=== PATIENT | female | born 1930 | race Caucasian/White ===

== ENCOUNTER → 2017-01-27 | Outpatient (CLI) | payer MEDICARE ==
[~2017-01-27] MED LIST: ANTIVERT25 MG PO; ASPIR 8181 MG PO; ASPIRIN325 M2 PO; ASPIRIN81 M1 PO; CARDIZEM CD180 MG PO; CATAPRES0.1 MG PO; CATAPRES0.2 MG PO; CIPRO250 MG PO; CIPRO500 MG; CIPRO500 MG PO; CIPROFLOXACIN500 MG PO; COMPLETE1 TA1 PO; COZAAR25 MG PO; DAYPRO600 M1 PO; DULCOLAX5 MG PO; FLAGYL 500 MG500 MG PO; FLAGYL500 MG PO; HYDRALAZINE HCL25 MG; K-DUR 20MEQ20 MEQ PO; KLOR-CON M2020 ME1 PO; LASIX20 MG PO; LASIX40 MG PO; LIDEX0.05% T; LIDODERM 5% PATC1 EA TD; LIPITOR40 MG PO; MACROBID100 M1 PO; MAXZIDE 25 MG-31 TAB PO; METOPROLOL25 MG PO; MILK OF MAGNESI1 TAB; MIRALAX17 GM/PACK PO; MOM30 M1 PO; NEURONTIN100 MG PO; NEURONTIN300 MG PO; OXYCODONE5 M1 PO; OXYCONTIN10 MG PO; PERCOCET 325 MG1 TA6 PO; PERCOCET 325 MG1 TA7 PO; POTASSIUM20 MEQ PO; PROTONIX40 MG PO; PYRIDIUM200 MG PO; REGLAN10 MG PO; ROBAXIN750 MG PO; TESSALON PERLE100 M1 PO; TORADOL10 MG PO; TYLENOL WITH CO1 TAB PO; VIBRAMYCIN100 MG PO; VICODIN 5/500 505 MG PO; XANAX0.25 MG PO; ZETIA10 MG PO; ZOFRAN ODT4 MG SL; ZYVOX600 MG PO; Zofran4 MG PO
[2017-01-27 08:46] LABS: ALBUMIN 3.9 gm/dl (3.1-4.5); BILIRUBIN, DIRECT 0.1 mg/dL (0.0-0.2); BILIRUBIN, TOTAL 0.4 mg/dl (0.2-1.0); TOTAL PROTEIN 7.8 gm/dL (6.4-8.2)
== END | disposition home or self-care (01) ==
LOC: LAB 07:53
PROVIDERS: Internal Medicine
DX: E78.5 Hyperlipidemia, unspecified (principal); E11.9 Type 2 diabetes mellitus without complications

== ENCOUNTER 2017-04-19 06:27 | Inpatient (IN) | payer MEDICARE ==
[2017-04-19] VITALS (7 sets, daily range): BP systolic 132–176; BP diastolic 64–92
[~2017-04-19] VITALS: Ht 147.3 cm; Wt 57.3 kg
[2017-04-19 07:06] LABS: BASO # 0.1 10*3/uL (0.0-0.1); BASO % 0.7 % (0.0-1.0); EOS # 0.3 10*3/uL (0.0-0.4); EOS % 3.7 % (1.0-4.0); HEMATOCRIT 36.5 % (37.0-47.0); HEMOGLOBIN 11.4 g/dl (12.0-16.0); LYMPH # 2.9 10*3/uL (1.3-4.4); LYMPH % 41.1 % (27.0-41.0); MEAN CELL VOLUME 88.6 fl (81.0-99.0); MEAN CORPUSCULAR HGB 27.7 pg (27.0-31.0); MEAN CORPUSCULAR HGB CONC 31.2 g/dl (33.0-37.0); MEAN PLATELET VOLUME 9.6 fl (9.6-12.3); MONO # 0.6 10*3/uL (0.1-1.0); MONO % 8.6 % (3.0-9.0); NEUT # 3.2 10*3/uL (2.3-7.9); NEUT % 45.8 % (47.0-73.0); PLATELET COUNT AUTOMATED 242 10*3/uL (130-400); RED BLOOD COUNT 4.12 10*6/uL (4.10-5.10); RED CELL DISTRI WIDTH 16.7 % (0-14.5); WHITE BLOOD COUNT 6.9 10*3/uL (4.8-10.8)
[2017-04-19 07:14] LABS: PROTHROMBIN TIME 10.6 SECONDS (9.0-12.4)
[2017-04-19 07:26] LABS: BILIRUBIN NEGATIVE (NEGATIVE); BLOOD NEGATIVE (NEGATIVE); CLARITY SL CLOUDY (CLEAR); COLOR STRAW (YELLOW); GLUCOSE NEGATIVE (NEGATIVE); KETONE NEGATIVE (NEGATIVE); LEUKO ESTERASE NEGATIVE (NEGATIVE); NITRITE NEGATIVE (NEGATIVE); PROTEIN NEGATIVE (NEGATIVE); SPECIFIC GRAVITY <= 1.005 (1.005-1.030); UROBILINOGEN 0.2 E.U./dl (0.2-1.0)
[2017-04-19 07:28] LABS: ALBUMIN 3.5 gm/dl (3.1-4.5); BUN 16 mg/dl (7-24); CARBON DIOXIDE 30 mmol/L (21-32); CHLORIDE 104 mmol/L (98-107); EST GLOM FILT AFRICAN AMERICAN > 60 ml/min; GLUCOSE 110 mg/dL (65-99); POTASSIUM 3.4 mmol/L (3.5-5.1); SGOT/AST 19 IU/L (3-35); SGPT/ALT 22 U/L (12-78); SODIUM 139 mmol/L (136-145)
[2017-04-19 07:33] LABS: ALKALINE PHOSPHATASE 103 U/L (45-117); BILIRUBIN, TOTAL 0.4 mg/dl (0.2-1.0); TOTAL PROTEIN 7.2 gm/dL (6.4-8.2)
[2017-04-19 07:35] LABS: TROPONIN I < 0.015 ng/ml (<0.045)
[2017-04-19 07:37] LABS: EPITHELIAL CELLS 0-2; URINE REFLEX COMMENT NO (NO); WBC 0-2 wbc/hpf (0-5)
[2017-04-19] MEDS ORDERED: TRAMADOL HCL50 MG PO (10:58)
[2017-04-20] VITALS: BP 152/80
[2017-04-20 06:47] LABS: BASO # 0.1 10*3/uL (0.0-0.1); EOS # 0.3 10*3/uL (0.0-0.4); EOS % 4.3 % (1.0-4.0); HEMATOCRIT 38.4 % (37.0-47.0); HEMOGLOBIN 11.8 g/dl (12.0-16.0); LYMPH # 3.3 10*3/uL (1.3-4.4); LYMPH % 47.1 % (27.0-41.0); MEAN CELL VOLUME 91.2 fl (81.0-99.0); MEAN CORPUSCULAR HGB CONC 30.7 g/dl (33.0-37.0); MONO # 0.6 10*3/uL (0.1-1.0); MONO % 7.9 % (3.0-9.0); NEUT # 2.8 10*3/uL (2.3-7.9); NEUT % 39.6 % (47.0-73.0); PLATELET COUNT AUTOMATED 245 10*3/uL (130-400); RED BLOOD COUNT 4.21 10*6/uL (4.10-5.10); RED CELL DISTRI WIDTH 16.8 % (0-14.5)
[2017-04-20 06:58] LABS: ALBUMIN 3.5 gm/dl (3.1-4.5); ALKALINE PHOSPHATASE 107 U/L (45-117); BILIRUBIN, TOTAL 0.4 mg/dl (0.2-1.0); BUN 15 mg/dl (7-24); CARBON DIOXIDE 32 mmol/L (21-32); CHLORIDE 102 mmol/L (98-107); EST GLOM FILT AFRICAN AMERICAN > 60 ml/min; FREE T4 0.97 ng/dl (0.76-1.46); GLUCOSE 98 mg/dL (65-99); MAGNESIUM 2.4 mg/dL (1.5-2.1); PHOSPHOROUS 3.8 mg/dL (2.5-4.9); POTASSIUM 4.1 mmol/L (3.5-5.1); SGOT/AST 22 IU/L (3-35); SGPT/ALT 22 U/L (12-78); SODIUM 140 mmol/L (136-145)
[2017-04-20 07:04] LABS: HEMOGLOBIN A1c 6.5 % (4.8-5.6)
[2017-04-20 07:22] LABS: PROTHROMBIN TIME 10.2 SECONDS (8.9-12.2)
[2017-04-20 07:38] LABS: VITAMIN D, 25-HYDROXY 16.7 ng/mL (30-100)
[2017-04-20 07:43] LABS: FOLIC ACID > 24.00 ng/mL (>5.38)
[2017-04-20 08:00] VITALS: BP 122/94
[2017-04-20] MEDS ORDERED: TRAMADOL HYDRO100 MG PO (10:57)
[2017-04-20] MEDS ORDERED: TRAMADOL HCL50 MG PO (10:57)
[2017-04-20 12:00] VITALS: BP 128/86
== END 2017-04-20 12:00 | disposition home or self-care (01) | DRG 552 ==
LOC: ED 06:27 → EDHOLD 09:11 → 4E 09:11
PROVIDERS: Emergency Medicine Emergency Medical Services; Internal Medicine
DX: M54.9 Dorsalgia, unspecified (principal); E11.65 Type 2 diabetes mellitus with hyperglycemia; I48.2 Chronic atrial fibrillation; E86.0 Dehydration; J98.11 Atelectasis; E78.5 Hyperlipidemia, unspecified; K27.9 Peptic ulcer, site unspecified, unspecified as acute or chronic, without hemorrhage or perforation; I10 Essential (primary) hypertension; G89.4 Chronic pain syndrome; M19.90 Unspecified osteoarthritis, unspecified site; D64.9 Anemia, unspecified; E87.6 Hypokalemia; K44.9 Diaphragmatic hernia without obstruction or gangrene; K57.90 Diverticulosis of intestine, part unspecified, without perforation or abscess without bleeding; Z96.643 Presence of artificial hip joint, bilateral; I25.10 Atherosclerotic heart disease of native coronary artery without angina pectoris; Z88.1 Allergy status to other antibiotic agents; Z88.8 Allergy status to other drugs, medicaments and biological substances; Z91.041 Radiographic dye allergy status; Z88.2 Allergy status to sulfonamides; Z88.7 Allergy status to serum and vaccine; Z79.82 Long term (current) use of aspirin; Z79.899 Other long term (current) drug therapy; Z88.0 Allergy status to penicillin; Z87.442 Personal history of urinary calculi; Z90.710 Acquired absence of both cervix and uterus; Z90.49 Acquired absence of other specified parts of digestive tract; Z95.1 Presence of aortocoronary bypass graft; Z83.3 Family history of diabetes mellitus; Z83.79 Family history of other diseases of the digestive system; Z83.6 Family history of other diseases of the respiratory system; Z87.440 Personal history of urinary (tract) infections; Z98.1 Arthrodesis status; Z81.1 Family history of alcohol abuse and dependence

== ENCOUNTER 2017-07-04 06:23 | Inpatient (IN) | payer MEDICARE ==
[~2017-07-04] VITALS: Ht 147.3 cm; Wt 57.4 kg
[2017-07-04 06:23] VITALS: BP 170/71
[~2017-07-04 06:23] MED LIST changes: +TRAMADOL HCL50 MG PO; +TRAMADOL HYDRO100 MG PO
[2017-07-04 07:15] LABS: BASO % 0.5 % (0.0-1.0); EOS # 0.2 10*3/uL (0.0-0.4); HEMATOCRIT 35.8 % (37.0-47.0); HEMOGLOBIN 11.2 g/dl (12.0-16.0); LYMPH # 1.4 10*3/uL (1.3-4.4); MEAN CELL VOLUME 89.5 fl (81.0-99.0); MEAN CORPUSCULAR HGB CONC 31.3 g/dl (33.0-37.0); MONO # 0.6 10*3/uL (0.1-1.0); MONO % 7.5 % (3.0-9.0); NEUT # 5.4 10*3/uL (2.3-7.9); NEUT % 71.6 % (47.0-73.0); PLATELET COUNT AUTOMATED 301 10*3/uL (130-400); RED CELL DISTRI WIDTH 15.8 % (0-14.5); WHITE BLOOD COUNT 7.5 10*3/uL (4.8-10.8)
[2017-07-04 07:36] LABS: ALBUMIN 3.4 gm/dl (3.1-4.5); ALKALINE PHOSPHATASE 101 U/L (45-117); BUN 19 mg/dl (7-24); CHLORIDE 104 mmol/L (98-107); CREATININE 0.66 mg/dL (0.55-1.02); LIPASE 65 U/L (73-393); SGOT/AST 26 IU/L (3-35); SGPT/ALT 20 U/L (12-78); SODIUM 140 mmol/L (136-145); TOTAL PROTEIN 7.4 gm/dL (6.4-8.2)
[2017-07-04 07:40] VITALS: BP 171/76
[2017-07-04 07:52] LABS: BILIRUBIN NEGATIVE (NEGATIVE); BLOOD NEGATIVE (NEGATIVE); CLARITY SL CLOUDY (CLEAR); COLOR YELLOW (YELLOW); GLUCOSE NEGATIVE (NEGATIVE); KETONE NEGATIVE (NEGATIVE); LEUKO ESTERASE TRACE (NEGATIVE); NITRITE NEGATIVE (NEGATIVE); PH 6.5 (5.0-9.0); SPECIFIC GRAVITY <= 1.005 (1.005-1.030); UROBILINOGEN 0.2 E.U./dl (0.2-1.0)
[2017-07-04 08:14] LABS: BACTERIA 1+
--- NOTE | 2017-07-04 08:17 | NUR ---
0789 PT STATES SHE IS FEELING BETER, UNTIL SHE STOOD TO USE THE BSC. AT THAT TIME THE PATIENT STATES THE NAUSEA IS BACK. UA OBTAINED AND SENT. CALL LIGHT IN REACH REORIENTED ON USE. CART IN LOW POSTION SIDE RAILS UP. MELE WHITE.
[2017-07-04 09:45] VITALS: BP 184/80
--- NOTE | 2017-07-04 09:45 | NUR ---
Time: 944 A 87 year old FEMALE admitted to 5E under services of FAY BYRD DO. Pt. arrived via bed from ER. Chief complaint: NAUSEA VOMITING UTI. LISA MCCARTHY
[2017-07-04 11:08] LABS: ACT PARTIAL THROMBO TIME 28.7 SECONDS (20.8-31.5)
[2017-07-04 12:00] VITALS: BP 178/81
--- NOTE | 2017-07-04 13:00 | NUR ---
MEDICATED WITH ULTRAM FOR BACK PAIN SHE RATES AN 8 ON THE PAIN SCALE.
--- NOTE | 2017-07-04 14:04 | NUR ---
NO FURTHER COMPLAINTS.
[2017-07-04 16:00] VITALS: BP 166/81
[2017-07-04 20:00] VITALS: BP 158/73
--- NOTE | 2017-07-04 21:00 | NUR ---
PO ULTRAM ADMINISTERED PER PRN ORDER FOR C/O ABD PAIN 02/25. PATIENT STATES EARLIER IV ZOFRAN HELPED WITH HER NAUSEA. WILL CONTINUE TO MONITOR. CALL LIGHT LEFT IN REACH.
--- NOTE | 2017-07-04 21:47 | NUR ---
PATIENT STATES EARLIER ULTRAM WAS EFFECTIVE. WILL MONITOR.
[2017-07-05] VITALS: BP 133/58
--- NOTE | 2017-07-05 02:08 | NUR ---
PATIENT ASLEEP IN BED AT THIS TIME. RESPIRATIONS EASY. NO S/S OF DISTRESS NOTED. ON 2L NC. WILL MONITOR. CALL LIGHT WITHIN REACH.
[2017-07-05 06:22] LABS: BASO % 0.6 % (0.0-1.0); EOS # 0.4 10*3/uL (0.0-0.4); EOS % 5.7 % (1.0-4.0); HEMATOCRIT 36.8 % (37.0-47.0); HEMOGLOBIN 11.4 g/dl (12.0-16.0); LYMPH # 2.9 10*3/uL (1.3-4.4); LYMPH % 44.4 % (27.0-41.0); MEAN CORPUSCULAR HGB 28.5 pg (27.0-31.0); MEAN PLATELET VOLUME 9.8 fl (9.6-12.3); MONO # 0.6 10*3/uL (0.1-1.0); MONO % 9.1 % (3.0-9.0); NEUT # 2.6 10*3/uL (2.3-7.9); NEUT % 39.9 % (47.0-73.0); PLATELET COUNT AUTOMATED 287 10*3/uL (130-400); RED CELL DISTRI WIDTH 15.9 % (0-14.5); WHITE BLOOD COUNT 6.5 10*3/uL (4.8-10.8)
[2017-07-05 06:52] LABS: ACT PARTIAL THROMBO TIME 28.8 SECONDS (20.8-31.5)
[2017-07-05 06:54] LABS: ALBUMIN 3.2 gm/dl (3.1-4.5); BUN 11 mg/dl (7-24); CHLORIDE 104 mmol/L (98-107); MAGNESIUM 2.2 mg/dL (1.5-2.1); POTASSIUM 3.4 mmol/L (3.5-5.1); SGOT/AST 13 IU/L (3-35); SGPT/ALT 19 U/L (12-78); SODIUM 141 mmol/L (136-145)
[2017-07-05 06:57] LABS: ALKALINE PHOSPHATASE 94 U/L (45-117)
[2017-07-05 07:34] LABS: VITAMIN D, 25-HYDROXY 26.1 ng/mL (30-100)
[2017-07-05 08:00] VITALS: BP 132/98
--- NOTE | 2017-07-05 08:00 | NUR ---
PATIENT RESTING WITH NO DISTRESS.
--- NOTE | 2017-07-05 09:00 | NUR ---
Civil Process Server in to talk to patient. Patient states lives at home with alone. There are no steps in the home. Physician: nicolás [facility]: [facility] Home health services: none Patient's level of ADLs: MINIMAL ASSIST Patient has working utilities: all working DME: walker, cane, home oxygen and portable tanks from [facility] Follow-up physician's appointment after d/c: will be made by hospitalist nurse director upon discharge Does patient want to access PORTAL?: no Discharge plan discussed with patient, patient lives at home alone, she has a daughter that helps her whenever she needs anything, patient states she will be going back home and denies any home needs at this time. ROSI BAILEY
--- NOTE | 2017-07-05 10:00 | NUR ---
AM MEDS TAKEN.
[2017-07-05 12:00] VITALS: BP 121/47
[2017-07-05] MEDS ORDERED: VITAMIN D31000 UNI1 PO (14:18)
--- NOTE | 2017-07-05 14:45 | NUR ---
HEP LOCK REMOVED FOR DISCHARGE. Discharge instructions reviewed with patient/family. Patient receptive and verbalizes understanding. Follow-up care arranged. Written instructions given to patient/family. BETITO EVANS
== END 2017-07-05 14:45 | disposition home or self-care (01) | DRG 384 ==
LOC: ED 06:23 → 5E 09:26 → EDHOLD 09:26 → 5E 09:29
PROVIDERS: Emergency Medicine; Internal Medicine; ADMIT Internal Medicine
DX: K27.9 Peptic ulcer, site unspecified, unspecified as acute or chronic, without hemorrhage or perforation (principal); E11.65 Type 2 diabetes mellitus with hyperglycemia; N39.0 Urinary tract infection, site not specified; R11.2 Nausea with vomiting, unspecified; D64.9 Anemia, unspecified; K44.9 Diaphragmatic hernia without obstruction or gangrene; I48.0 Paroxysmal atrial fibrillation; K57.30 Diverticulosis of large intestine without perforation or abscess without bleeding; M54.9 Dorsalgia, unspecified; G89.4 Chronic pain syndrome; I25.10 Atherosclerotic heart disease of native coronary artery without angina pectoris; I10 Essential (primary) hypertension; E78.5 Hyperlipidemia, unspecified; M19.90 Unspecified osteoarthritis, unspecified site; Z96.643 Presence of artificial hip joint, bilateral; Z87.440 Personal history of urinary (tract) infections; Z87.442 Personal history of urinary calculi; Z88.0 Allergy status to penicillin; Z88.2 Allergy status to sulfonamides; Z88.1 Allergy status to other antibiotic agents; Z88.8 Allergy status to other drugs, medicaments and biological substances; Z88.7 Allergy status to serum and vaccine; Z91.041 Radiographic dye allergy status; Z90.710 Acquired absence of both cervix and uterus; Z90.79 Acquired absence of other genital organ(s); Z90.722 Acquired absence of ovaries, bilateral; Z95.1 Presence of aortocoronary bypass graft; Z83.3 Family history of diabetes mellitus; Z81.1 Family history of alcohol abuse and dependence; Z88.6 Allergy status to analgesic agent; Z79.82 Long term (current) use of aspirin; Z79.899 Other long term (current) drug therapy

== ENCOUNTER 2017-08-07 16:55 | Inpatient (IN) | payer MEDICARE ==
[~2017-08-07] VITALS: Ht 147.3 cm; Wt 57.2 kg
[~2017-08-07 16:55] MED LIST changes: +VITAMIN D31000 UNI1 PO
[2017-08-07 17:03] VITALS: BP 173/76
[2017-08-07 17:57] LABS: BASO % 0.5 % (0.0-1.0); EOS # 0.2 10*3/uL (0.0-0.4); EOS % 2.3 % (1.0-4.0); HEMATOCRIT 37.8 % (37.0-47.0); HEMOGLOBIN 11.9 g/dl (12.0-16.0); LYMPH # 2.1 10*3/uL (1.3-4.4); LYMPH % 24.8 % (27.0-41.0); MEAN CELL VOLUME 89.6 fl (81.0-99.0); MEAN CORPUSCULAR HGB 28.2 pg (27.0-31.0); MEAN CORPUSCULAR HGB CONC 31.5 g/dl (33.0-37.0); MEAN PLATELET VOLUME 10.1 fl (9.6-12.3); MONO # 0.7 10*3/uL (0.1-1.0); MONO % 8.3 % (3.0-9.0); NEUT # 5.4 10*3/uL (2.3-7.9); NEUT % 63.7 % (47.0-73.0); PLATELET COUNT AUTOMATED 261 10*3/uL (130-400); RED BLOOD COUNT 4.22 10*6/uL (4.10-5.10); RED CELL DISTRI WIDTH 16.1 % (0-14.5); WHITE BLOOD COUNT 8.5 10*3/uL (4.8-10.8)
[2017-08-07 18:06] LABS: ACT PARTIAL THROMBO TIME 28.3 SECONDS (20.8-31.5)
[2017-08-07 18:12] LABS: ALBUMIN 3.9 gm/dl (3.1-4.5); ALKALINE PHOSPHATASE 101 U/L (45-117); BUN 20 mg/dl (7-24); CHLORIDE 100 mmol/L (98-107); LIPASE 61 U/L (73-393); POTASSIUM 3.6 mmol/L (3.5-5.1); SGOT/AST 13 IU/L (3-35); SGPT/ALT 21 U/L (12-78); SODIUM 139 mmol/L (136-145); TOTAL PROTEIN 7.8 gm/dL (6.4-8.2)
[2017-08-07 18:16] LABS: TROPONIN I < 0.015 ng/ml (<0.045)
[2017-08-07 19:06] LABS: BILIRUBIN NEGATIVE (NEGATIVE); BLOOD TRACE-INTACT (NEGATIVE); CLARITY CLEAR (CLEAR); COLOR YELLOW (YELLOW); GLUCOSE NEGATIVE (NEGATIVE); KETONE NEGATIVE (NEGATIVE); LEUKO ESTERASE TRACE (NEGATIVE); NITRITE NEGATIVE (NEGATIVE); PH 7.5 (5.0-9.0); UROBILINOGEN 0.2 E.U./dl (0.2-1.0)
[2017-08-07 19:14] LABS: BACTERIA 1+; EPITHELIAL CELLS 0-2; RBC 0-2 rbc/hpf (0-2)
[2017-08-07 20:00] VITALS: BP 158/86
--- NOTE | 2017-08-07 20:37 | NUR ---
ATTEMPTED TO GIVE RN TO RN REPORT TO [facility].
[2017-08-07 21:45] VITALS: BP 110/68
--- NOTE | 2017-08-07 21:45 | NUR ---
A 87, admitted to 5E, under the services of FAY Byrd DO with a diagnosis of UTI, DIZZINESS OF UNKNOWN CAUSE. Chief complaint is DIZZINESS. Patient arrived via stretcher from ER. Monitor applied. Initial assessment completed. Vital signs taken and recorded. FAY BYRD DO notified of admission to the unit. Orders received. See assessment for past medical history, medications and allergies. Patient and/or family oriented to unit. [facility] visitation policy reviewed. Clothing/patient valuable form completed. TRE HERNANDEZ
--- NOTE | 2017-08-07 22:03 | NUR ---
SPOKE TO REGARDING PATIENT'S ALLERGIES. DISCUSSED REACTIONS TO EACH OF PATIENT'S LISTED ALLERGIES PER 'S REQUEST. FOR EVERY ALLERGY REVIEWED, PATIENT RESPONDED "I ALMOST ." WHEN RN ASKED PATIENT TO EXPLAIN FURTHER, PATIENT SAID "COULDN'T BREATH, ALMOST ." UPDATED ON RESPONSES.
[2017-08-07] MEDS ORDERED: LIPITOR20 MG PO (23:54)
[2017-08-07] MEDS ORDERED: ONCE DAILY1 EACH PO (23:55)
[2017-08-08] VITALS: BP 105/79; BP 175/79
[2017-08-08] MEDS ORDERED: LASIX20 MG PO (00:15)
--- NOTE | 2017-08-08 00:15 | NUR ---
MED REC UP TO DATE PER LIST PROVIDED BY PATIENT.
[2017-08-08] MEDS ORDERED: TRAMADOL HCL50 MG PO (00:34)
[2017-08-08 00:49] VITALS: BP 110/68
--- NOTE | 2017-08-08 01:19 | NUR ---
IV REGLAN ADMINISTERED PER PRN ORDER FOR C/O NAUSEA WITH DRY HEAVES. SALTINE CRACKERS AND GINGERALE ALSO PROVIDED. WILL MONITOR EFFECTIVENESS. CALL LIGHT LEFT IN REACH.
--- NOTE | 2017-08-08 02:03 | NUR ---
PATIENT STATES EARLIER IV REGLAN HELPED SOME WITH HER NAUSEA/DRY HEAVES. WILL CONTINUE TO MONITOR. CALL LIGHT LEFT IN REACH.
--- NOTE | 2017-08-08 02:55 | NUR ---
[facility] CALLED AT THIS TIME TO VERIFY ORDER FOR DOXY PO Q6H. VERIFIED ORDER WITH /.
[2017-08-08 07:52] LABS: BASO % 0.5 % (0.0-1.0); EOS # 0.1 10*3/uL (0.0-0.4); EOS % 0.8 % (1.0-4.0); HEMATOCRIT 37.7 % (37.0-47.0); LYMPH % 26.1 % (27.0-41.0); MEAN CORPUSCULAR HGB 28.6 pg (27.0-31.0); MEAN CORPUSCULAR HGB CONC 31.8 g/dl (33.0-37.0); MEAN PLATELET VOLUME 10.7 fl (9.6-12.3); MONO # 0.5 10*3/uL (0.1-1.0); MONO % 6.4 % (3.0-9.0); NEUT # 5.1 10*3/uL (2.3-7.9); NEUT % 65.9 % (47.0-73.0); PLATELET COUNT AUTOMATED 244 10*3/uL (130-400); RED BLOOD COUNT 4.19 10*6/uL (4.10-5.10); WHITE BLOOD COUNT 7.8 10*3/uL (4.8-10.8)
[2017-08-08 08:00] VITALS: BP 156/68
--- NOTE | 2017-08-08 08:14 | NUR ---
PT MEDICATED WITH PRN ULTRAM FOR C/O BACK PAIN AT THIS TIME. PT RATES PAIN 04/27. WILL REACCESS.
[2017-08-08 08:17] LABS: BUN 12 mg/dl (7-24); CHLORIDE 104 mmol/L (98-107); CHOLESTEROL 186 mg/dL (<200); CREATININE 0.66 mg/dL (0.55-1.02); PHOSPHOROUS 2.8 mg/dL (2.5-4.9); POTASSIUM 3.6 mmol/L (3.5-5.1); SODIUM 140 mmol/L (136-145); TRIGLYCERIDES 55 mg/dl (<150); VLDL CHOLESTEROL 11 mg/dL (6-40)
[2017-08-08 08:25] LABS: HDL CHOLESTEROL 100 mg/dl (40-60); LDL CHOLESTEROL 75 mg/dL (9-159)
--- NOTE | 2017-08-08 09:00 | NUR ---
Hand Cooper Helper in to talk to patient. Patient states lives at home with alone. There are no steps in the home. Physician: nicolás [facility] health services: none Patient's level of ADLs: INDEPENDENT Patient has working utilities: all working DME: cane, home oxygen and portable tanks from [facility] Follow-up physician's appointment after d/c: will be made by hospitalist nurse director upon discharge Does patient want to access PORTAL?: no Discharge plan discussed with patient, tiffanie lives at home alone, uses a cane for ambulation, drives, patient stated that she is very weak at this time, discussed with her a short term long term for rehab prior to going back home, patient stated "never will i go to a long term" also discussed with her VNA and she was receptive to this, she stated she has used [facility] in the past and wants them again, space planner will make referral to [facility] for when patient is medically stable for discharge,. ROSI BAILEY
--- NOTE | 2017-08-08 10:00 | NUR ---
PRN ULTRAM EFFECTIVE PER PT.
--- NOTE | 2017-08-08 10:04 | NUR ---
PHYSICAL THERAPY PAtient evaluated on 5, full evaluation to follow. Continue with PT as per plan of care with fall and acute debility precautions. PAtient is moderate complexity via chart review, tests and evaluation: 86910. Home with complete home health services versus SNF, pending progress. Thank you for this referral. Dania Connell,PT
--- NOTE | 2017-08-08 10:15 | NUR ---
Occupational Therapy evaluation completed this date on 5 with full eval to follow. PRecautions include fall risk, fear of falling, IV UE, O2, low complexity level 88562. Recommend OT per POC and OT upon d/c if progression in OT or SNF. Thank you for this referral. Keysha Montoya OTR/L
[2017-08-08 12:00] VITALS: BP 150/70
--- NOTE | 2017-08-08 13:03 | NUR ---
PATIENT SEEN FOR 25 MINUTES OT THIS DATE. PATIENT IDENTIFIED BY NAME AND DATE OF . PATIENT COMPLETED SUPINE TO SIT EOB MIN A WITH VERBAL CUES PROPER HAND PLACEMENT. PATIENT DEMONSTRATED DECREASE SAFETY AWARENESS. PATIENT COMPLETED GROOMING SEATED/STANDING CGA BRUSHING TEETH AND COMBING HAIR. PATIENT COMPLETED STAND TOLERANCE ACTIVITY MIN A APPROX 2 MINUTES. PATIENT COMPLETED SIT TO STAND FROM BED CGA AND SIT TO SPINE MIN A LE WITH MIN VERBAL CUES INCREASE POSTURE USE CANE SUPPORT. PATIENT CALL LIGHT WITHIN REACH AND BED ALARM IN TACT. DONA SAHU
--- NOTE | 2017-08-08 13:41 | NUR ---
PHYSICAL THERAPY Pt was seen this PM 1:1 and having acute debility precautions and needing verbal cues for this session for gait session. Pt has IV Pole and 3 L o2. Transfer supine/sit CGA X 1, sitting balance supervision X 1, X 6 min no LOB. Sit/stand and standing balance MOD A X 1. Gait total 45' X 1, MOD/MIN PIPELAYER X 1, with cueing for gait safety and her turns, and stop/start gait. While Pt was up, in and out of her bathroom, washed her hands and back supine in bed, bed alarm on, call light and phone. ROSALINDA PERRY TILLER MAN.
[2017-08-08 16:00] VITALS: BP 157/85
[2017-08-08 20:00] VITALS: BP 142/78
--- NOTE | 2017-08-08 20:30 | NUR ---
PATIENT MEDICATED WITH ULTRAM PER PRN ORDER FOR C/O BACK PAIN. RATED PAIN A 8/10 WITH 10 BEING THE WORST. SEE EMAR. REINFORCED USE OF CALL LIGHT.
[2017-08-09] VITALS: BP 138/63
[2017-08-09 07:42] LABS: BUN 11 mg/dl (7-24); CHLORIDE 107 mmol/L (98-107); CREATININE 0.62 mg/dL (0.55-1.02); POTASSIUM 4.5 mmol/L (3.5-5.1); SODIUM 143 mmol/L (136-145)
[2017-08-09 08:00] VITALS: BP 152/72
--- NOTE | 2017-08-09 09:00 | NUR ---
case management visits with patient, patient will have [facility] see her at home, patient denies any other home needs
--- NOTE | 2017-08-09 09:50 | NUR ---
PHYSICAL THERAPY Mrs Luna seen this AM 1:1 for her therapy treatment. Pt off her o2 at this time and o2 was 95%. Pt sitting independent at bedside. Sit/stand, standing balance supervision x 1. Gait total 105' X 2, CG X 1. no LOB and little verbal cueing for gait safety, and one sitting rest, Pt had IV Pole at this time. When getting back to bed o2 was 93%, HR 92 BPM, Pt having no complaints. Said that when she leaves she's going to live with her sister. ROSALINDA PERRY DOG TRAINER.
--- NOTE | 2017-08-09 11:04 | NUR ---
Faxed order and clincals to [facility] for referral
[2017-08-09] MEDS ORDERED: DOXYCYCLINE100 M3 PO (11:39)
[2017-08-09 12:00] VITALS: BP 148/68
--- NOTE | 2017-08-09 12:31 | NUR ---
PHYSICAL THERAPY CO-SIGN I approve of the Phyical Therapy notes written above. ELGIN FERRER PT
--- NOTE | 2017-08-09 13:50 | NUR ---
Discharge instructions reviewed with patient. Patient receptive and verbalizes understanding. Follow-up care arranged. Written instructions given to patient. JOSE MANRIQUEZ
--- NOTE | 2017-08-09 14:45 | NUR ---
OCCUPATIONAL THERAPY CO-SIGN I approve of the Occupational Therapy notes written above. VIDHI STAUFFER OTR/Jorge
== END 2017-08-09 13:50 | disposition home or self-care (01) | DRG 690 ==
LOC: ED 16:55 → 5E 20:22 → EDHOLD 20:22 → 5E 20:27
PROVIDERS: Hospitalist; Internal Medicine; Nurse Practitioner Family; ADMIT Internal Medicine
DX: N39.0 Urinary tract infection, site not specified (principal); E11.65 Type 2 diabetes mellitus with hyperglycemia; I48.0 Paroxysmal atrial fibrillation; E86.0 Dehydration; I45.81 Long QT syndrome; E78.5 Hyperlipidemia, unspecified; G89.4 Chronic pain syndrome; D72.810 Lymphocytopenia; E83.41 Hypermagnesemia; I11.9 Hypertensive heart disease without heart failure; I25.10 Atherosclerotic heart disease of native coronary artery without angina pectoris; K44.9 Diaphragmatic hernia without obstruction or gangrene; K57.30 Diverticulosis of large intestine without perforation or abscess without bleeding; M15.9 Polyosteoarthritis, unspecified; R27.0 Ataxia, unspecified; R31.9 Hematuria, unspecified; Z96.643 Presence of artificial hip joint, bilateral; Z79.82 Long term (current) use of aspirin; Z79.899 Other long term (current) drug therapy; Z87.11 Personal history of peptic ulcer disease; Z87.442 Personal history of urinary calculi; Z90.49 Acquired absence of other specified parts of digestive tract; Z95.1 Presence of aortocoronary bypass graft; Z90.710 Acquired absence of both cervix and uterus; Z79.4 Long term (current) use of insulin; Z90.79 Acquired absence of other genital organ(s); Z90.722 Acquired absence of ovaries, bilateral; Z88.0 Allergy status to penicillin; Z86.73 Personal history of transient ischemic attack (TIA), and cerebral infarction without residual deficits; Z88.2 Allergy status to sulfonamides; Z88.7 Allergy status to serum and vaccine; Z88.8 Allergy status to other drugs, medicaments and biological substances; Z88.1 Allergy status to other antibiotic agents; Z91.041 Radiographic dye allergy status; Z83.6 Family history of other diseases of the respiratory system; Z81.1 Family history of alcohol abuse and dependence; Z83.3 Family history of diabetes mellitus; Z83.79 Family history of other diseases of the digestive system

== ENCOUNTER 2017-08-19 00:46 | Inpatient (IN) | payer MEDICARE ==
[~2017-08-19] VITALS: Ht 148.5 cm; Wt 57.7 kg
[2017-08-19] VITALS (9 sets, daily range): BP systolic 133–183; BP diastolic 45–74
--- NOTE | ~2017-08-19 | EKG ---
[place], [place] ELECTROCARDIOGRAM REPORT NAME: ADELINA PISANO UNIT #: [id number] ROOM: 507 DOCTOR: LAURI GARCIA,KEZIA BIRTHDATE: [birth year] DOS: 08/19/2017 TIME: 12:45 a.m. IMPRESSION: 1. Sinus rhythm. 2. Left atrial enlargement. 3. Right bundle--branch block. 4. Left anterior fascicular block. 5. Left ventricular hypertrophy. KEZIA CARREON MD CM:EKGRPT:ELECTROCARDIOGRAM REPORT [id number] 1652 KEZIA CARREON MD
--- NOTE | ~2017-08-19 | EKG ---
[place], [place] ELECTROCARDIOGRAM REPORT NAME: ADELINA PISANO UNIT #: [id number] ROOM: 507 DOCTOR: LAURI GARCIA,KEZIA BIRTHDATE: [birth year] DOS: 08/19/2017 TIME: 7:16 a.m. IMPRESSION: 1. Normal sinus rhythm. 2. Right bundle-branch block. 3. Left anterior fascicular block. 4. Nonspecific ST-T changes. 5. Prolonged QT interval. KEZIA CARREON MD CM:EKGRPT:ELECTROCARDIOGRAM REPORT 1510 1710 KEZIA CARREON MD
--- NOTE | ~2017-08-19 | EKG ---
[place], [place] ELECTROCARDIOGRAM REPORT NAME: ADELINA PISANO UNIT #: [id number] ROOM: 507 DOCTOR: LAURI GARCIA,KEZIA BIRTHDATE: [birth year] DOS: 08/19/2017 TIME: 3:50 a.m. IMPRESSION: 1. Normal sinus rhythm. 2. Right bundle-branch block. 3. Left anterior fascicular block. 4. First degree atrioventricular block. 5. Left ventricular hypertrophy. KEZIA CARREON MD CM:EKGRPT:ELECTROCARDIOGRAM REPORT 1507 1654 KEZIA CARREON MD
[~2017-08-19 00:46] MED LIST changes: +DOXYCYCLINE100 M3 PO; +LIPITOR20 MG PO
--- NOTE | 2017-08-19 01:08 | NUR ---
PT UP TO USE RESTROOM WITH ASSISTANCE AND STATES THAT SHE FEELS LIGHTHEADED AND UNSTEADY. PT USED RESTROOM ALONE WITHOUT ANY PROBLEMS THEN ASSISTED BACK TO HER ROOM. JERMAINE PULLIAM RN
[2017-08-19 01:26] LABS: BASO % 0.5 % (0.0-1.0); EOS # 0.3 10*3/uL (0.0-0.4); EOS % 3.2 % (1.0-4.0); HEMATOCRIT 38.2 % (37.0-47.0); HEMOGLOBIN 11.9 g/dl (12.0-16.0); LYMPH # 2.5 10*3/uL (1.3-4.4); LYMPH % 30.8 % (27.0-41.0); MEAN CELL VOLUME 89.5 fl (81.0-99.0); MEAN CORPUSCULAR HGB 27.9 pg (27.0-31.0); MEAN CORPUSCULAR HGB CONC 31.2 g/dl (33.0-37.0); MEAN PLATELET VOLUME 10.2 fl (9.6-12.3); MONO # 0.7 10*3/uL (0.1-1.0); MONO % 8.4 % (3.0-9.0); NEUT # 4.6 10*3/uL (2.3-7.9); NEUT % 56.9 % (47.0-73.0); PLATELET COUNT AUTOMATED 244 10*3/uL (130-400); RED BLOOD COUNT 4.27 10*6/uL (4.10-5.10); RED CELL DISTRI WIDTH 15.9 % (0-14.5); WHITE BLOOD COUNT 8.1 10*3/uL (4.8-10.8)
[2017-08-19 01:28] LABS: BILIRUBIN NEGATIVE (NEGATIVE); BLOOD TRACE-LYSED (NEGATIVE); CLARITY CLEAR (CLEAR); COLOR YELLOW (YELLOW); GLUCOSE NEGATIVE (NEGATIVE); KETONE NEGATIVE (NEGATIVE); LEUKO ESTERASE NEGATIVE (NEGATIVE); NITRITE NEGATIVE (NEGATIVE); SPECIFIC GRAVITY <= 1.005 (1.005-1.030); UROBILINOGEN 0.2 E.U./dl (0.2-1.0)
[2017-08-19 01:34] LABS: BACTERIA TRACE; EPITHELIAL CELLS 0-2; WBC 0-2 wbc/hpf (0-5)
[2017-08-19 01:36] LABS: ACT PARTIAL THROMBO TIME 28.4 SECONDS (20.8-31.5)
[2017-08-19 01:42] LABS: ALBUMIN 3.9 gm/dl (3.1-4.5); ALKALINE PHOSPHATASE 97 U/L (45-117); BUN 18 mg/dl (7-24); CHLORIDE 102 mmol/L (98-107); CREATININE 0.63 mg/dL (0.55-1.02); POTASSIUM 3.6 mmol/L (3.5-5.1); SGOT/AST 23 IU/L (3-35); SGPT/ALT 23 U/L (12-78); SODIUM 142 mmol/L (136-145); TOTAL PROTEIN 7.6 gm/dL (6.4-8.2)
[2017-08-19 01:46] LABS: TROPONIN I < 0.015 ng/ml (<0.045)
--- NOTE | 2017-08-19 02:11 | NUR ---
PT LYING SUPINE IN BED WITH EYES CLOSED. RESPIRATIONS ARE EASY AND NONLABORED. WILL CONTINUE TO MONITOR. JERMAINE PULLIAM RN
--- NOTE | 2017-08-19 02:50 | NUR ---
AN 87 Y/O FEMALE, admitted to 5E, under the services of INDER Rosales DO with a diagnosis of CHEST PAIN OF UNCERTAIN ETIOLOGY. Chief complaint is CHEST PAIN. Patient arrived via stretcher from ER. Monitor applied. Initial assessment completed. Vital signs taken and recorded. See assessment for past medical history, medications and allergies. Patient and/or family oriented to unit. [facility] isitation policy reviewed. Clothing/patient valuable form completed. ALVERTO ALLEN
[2017-08-19 04:05] LABS: BASO % 0.5 % (0.0-1.0); EOS # 0.1 10*3/uL (0.0-0.4); EOS % 1.4 % (1.0-4.0); HEMATOCRIT 35.3 % (37.0-47.0); HEMOGLOBIN 11.1 g/dl (12.0-16.0); LYMPH # 1.8 10*3/uL (1.3-4.4); LYMPH % 23.7 % (27.0-41.0); MEAN CELL VOLUME 90.3 fl (81.0-99.0); MEAN CORPUSCULAR HGB 28.4 pg (27.0-31.0); MEAN CORPUSCULAR HGB CONC 31.4 g/dl (33.0-37.0); MEAN PLATELET VOLUME 10.2 fl (9.6-12.3); MONO # 0.6 10*3/uL (0.1-1.0); MONO % 7.9 % (3.0-9.0); NEUT # 5.1 10*3/uL (2.3-7.9); NEUT % 66.1 % (47.0-73.0); PLATELET COUNT AUTOMATED 235 10*3/uL (130-400); RED BLOOD COUNT 3.91 10*6/uL (4.10-5.10); RED CELL DISTRI WIDTH 15.9 % (0-14.5); WHITE BLOOD COUNT 7.7 10*3/uL (4.8-10.8)
[2017-08-19 04:19] LABS: ALBUMIN 3.7 gm/dl (3.1-4.5); ALKALINE PHOSPHATASE 89 U/L (45-117); BUN 16 mg/dl (7-24); CHLORIDE 104 mmol/L (98-107); CHOLESTEROL 215 mg/dL (<200); CREATININE 0.59 mg/dL (0.55-1.02); HDL CHOLESTEROL 89 mg/dl (40-60); LDL CHOLESTEROL 114 mg/dL (9-159); POTASSIUM 3.7 mmol/L (3.5-5.1); SGOT/AST 16 IU/L (3-35); SGPT/ALT 19 U/L (12-78); SODIUM 143 mmol/L (136-145); TOTAL PROTEIN 7.2 gm/dL (6.4-8.2); TRIGLYCERIDES 58 mg/dl (<150); VLDL CHOLESTEROL 12 mg/dL (6-40)
[2017-08-19 04:21] LABS: FREE T4 0.92 ng/dl (0.76-1.46)
[2017-08-19] MEDS ORDERED: ONCE DAILY1 EACH PO (04:28)
--- NOTE | 2017-08-19 06:40 | NUR ---
ANSWERING SERVICE CALLED FOR DR HAJI CONSULT
--- NOTE | 2017-08-19 08:04 | NUR ---
SITTING ON SIDE OF BED AWAKE ALERT AND ORIENTED X3, C/O BACK PAIN OF 7/10 TRAMADOL GIVEN AT THIS TIME. NO S/S OF DISTRESS. SEE ASSESS. WILL CONT TO MONITOR. CALL LIGHT IN REACH.
--- NOTE | 2017-08-19 09:04 | NUR ---
TRAMADOL EFF FOR PAIN PER PT. WILL CONT TO MONITOR.
--- NOTE | 2017-08-19 13:43 | NUR ---
PT REFUSES ANTIBIOTIC STATING THAT SHE HAS SO MANY ALLERGIES AND IS AFRAID OF TAKING IT. I EDUCATED HER REGARDING THE FAMILY THAT THE ANTIBIOTIC COMES FROM AND SHE STILL REFUSED. WILL NOTIFY
--- NOTE | 2017-08-19 13:48 | NUR ---
NOTIFIED DR GONZALEZ THAT PT REFUSED ANTIBIOTIC AND SHE HAD ME ASK PT IF SHE WOULD TAKE A DOSE OF DOXY AND PT WAS AGREEABLE. DR GONZALEZ STATED SHE WILL ORDER IT.
--- NOTE | 2017-08-19 14:58 | NUR ---
DISCHARGED AT THIS TIME. IV REMOVED AND PRESSURE DRESSING APPLIED. HEART MONITOR RETURNED TO FLOOR. VERBALIZED UNDERSTANDING OF DISCHARGE INSTRUCTIONS.
== END 2017-08-19 14:58 | disposition home or self-care (01) | DRG 392 ==
LOC: ED 00:46 → EDHOLD 02:22 → 5E 02:29
PROVIDERS: Emergency Medicine Emergency Medical Services; Family Medicine; ADMIT Internal Medicine
DX: K21.9 Gastro-esophageal reflux disease without esophagitis (principal); E11.65 Type 2 diabetes mellitus with hyperglycemia; I48.91 Unspecified atrial fibrillation; I45.81 Long QT syndrome; I25.708 Atherosclerosis of coronary artery bypass graft(s), unspecified, with other forms of angina pectoris; G89.4 Chronic pain syndrome; G43.909 Migraine, unspecified, not intractable, without status migrainosus; E78.5 Hyperlipidemia, unspecified; I11.9 Hypertensive heart disease without heart failure; M19.90 Unspecified osteoarthritis, unspecified site; Z96.643 Presence of artificial hip joint, bilateral; K27.9 Peptic ulcer, site unspecified, unspecified as acute or chronic, without hemorrhage or perforation; I45.10 Unspecified right bundle-branch block; K57.90 Diverticulosis of intestine, part unspecified, without perforation or abscess without bleeding; Z87.440 Personal history of urinary (tract) infections; Z86.73 Personal history of transient ischemic attack (TIA), and cerebral infarction without residual deficits; Z90.89 Acquired absence of other organs; Z95.1 Presence of aortocoronary bypass graft; Z90.710 Acquired absence of both cervix and uterus; Z81.1 Family history of alcohol abuse and dependence; Z83.3 Family history of diabetes mellitus; Z83.6 Family history of other diseases of the respiratory system; Z88.0 Allergy status to penicillin; Z88.2 Allergy status to sulfonamides; Z88.8 Allergy status to other drugs, medicaments and biological substances; Z88.6 Allergy status to analgesic agent; Z88.1 Allergy status to other antibiotic agents; Z91.041 Radiographic dye allergy status; Z87.442 Personal history of urinary calculi

== ENCOUNTER 2017-08-26 04:34 | Inpatient (IN) | payer MEDICARE ==
[~2017-08-26] VITALS: Ht 149.8 cm; Wt 56.5 kg
[~2017-08-26 04:34] MED LIST changes: +ONCE DAILY1 EACH PO
[2017-08-26 04:36] VITALS: BP 176/65
[2017-08-26 05:06] LABS: BASO % 0.5 % (0.0-1.0); EOS # 0.1 10*3/uL (0.0-0.4); EOS % 1.6 % (1.0-4.0); HEMATOCRIT 37.7 % (37.0-47.0); HEMOGLOBIN 11.5 g/dl (12.0-16.0); LYMPH # 1.7 10*3/uL (1.3-4.4); LYMPH % 22.8 % (27.0-41.0); MEAN CELL VOLUME 91.1 fl (81.0-99.0); MEAN CORPUSCULAR HGB 27.8 pg (27.0-31.0); MEAN CORPUSCULAR HGB CONC 30.5 g/dl (33.0-37.0); MEAN PLATELET VOLUME 9.9 fl (9.6-12.3); MONO # 0.4 10*3/uL (0.1-1.0); MONO % 5.5 % (3.0-9.0); NEUT # 5.2 10*3/uL (2.3-7.9); NEUT % 69.2 % (47.0-73.0); PLATELET COUNT AUTOMATED 266 10*3/uL (130-400); RED BLOOD COUNT 4.14 10*6/uL (4.10-5.10); RED CELL DISTRI WIDTH 15.8 % (0-14.5); WHITE BLOOD COUNT 7.5 10*3/uL (4.8-10.8)
[2017-08-26 05:26] LABS: ALBUMIN 3.7 gm/dl (3.1-4.5); ALKALINE PHOSPHATASE 113 U/L (45-117); BUN 16 mg/dl (7-24); CHLORIDE 102 mmol/L (98-107); CREATININE 0.74 mg/dL (0.55-1.02); LIPASE 55 U/L (73-393); POTASSIUM 4.1 mmol/L (3.5-5.1); SGOT/AST 19 IU/L (3-35); SGPT/ALT 25 U/L (12-78); SODIUM 141 mmol/L (136-145); TOTAL PROTEIN 7.9 gm/dL (6.4-8.2)
[2017-08-26 05:27] LABS: TROPONIN I < 0.015 ng/ml (<0.045)
[2017-08-26 05:42] LABS: BILIRUBIN NEGATIVE (NEGATIVE); BLOOD NEGATIVE (NEGATIVE); CLARITY CLEAR (CLEAR); COLOR YELLOW (YELLOW); GLUCOSE NEGATIVE (NEGATIVE); KETONE NEGATIVE (NEGATIVE); LEUKO ESTERASE TRACE (NEGATIVE); NITRITE NEGATIVE (NEGATIVE); PH 7.5 (5.0-9.0); UROBILINOGEN 0.2 E.U./dl (0.2-1.0)
[2017-08-26 06:17] VITALS: BP 179/85
[2017-08-26 06:32] VITALS: BP 176/80
--- NOTE | 2017-08-26 06:32 | NUR ---
A 87, admitted to , under the services of FAY Byrd DO with a diagnosis of INTRACTABLE N/V. PATIENT DENIES ACTIVE VOMITING AND C/O ONLY DR JERRY - NONE AT PRESENT. Chief complaint is NO "GODD BM" X 4 DAYS. MINIMAL BM 08/25. Patient arrived via bed from ER. Monitor applied. Initial assessment completed. Vital signs taken and recorded. FAY BYRD DO / DR AMANDA notified of admission to the unit. Orders received. See assessment for past medical history, medications and allergies. Patient and/or family oriented to unit. [facility] visitation policy reviewed. Clothing/patient valuable form completed. CHARLIE BARRETO
--- NOTE | 2017-08-26 06:56 | NUR ---
MED REC UP TO DATE VIA LIST FROM PATIENT.
--- NOTE | 2017-08-26 08:55 | NUR ---
PATIENT COMPLAINING OF CRAMPING IN HER ABDOMEN. GI COCKTAIL AND MG CITRATE GIVEN AT THIS TIME. WILL CONTINUE TO MONITOR FOR EFFECTIVENESS
--- NOTE | 2017-08-26 11:30 | NUR ---
PATIENT STILL COMPLAINING OF NAUSEA AND VOMMITING, ZOFRAN DID NOT HELP, CALLED DR. HARPER FOR DOSE OF PHENERGAN. GIVEN AT THIS TIME. WILL MONITOR FOR EFFECTIVENESS.
[2017-08-26 12:00] VITALS: BP 137/76
--- NOTE | 2017-08-26 12:00 | NUR ---
PATIENT STATED PHENERGAN WAS EFFECTIVE.
[2017-08-26 16:00] VITALS: BP 158/69
[2017-08-26 20:00] VITALS: BP 164/66
[2017-08-27] VITALS: BP 115/87
--- NOTE | 2017-08-27 01:35 | NUR ---
SLEEPING. RESP EASY AND NONLABORED. O2 INTACT. CALL LIGHT IN REACH. BED ALARM ON. WILL CONTINUE TO MONITOR.
[2017-08-27 06:16] LABS: BASO # 0.1 10*3/uL (0.0-0.1); BASO % 0.6 % (0.0-1.0); EOS # 0.4 10*3/uL (0.0-0.4); EOS % 4.4 % (1.0-4.0); HEMATOCRIT 36.8 % (37.0-47.0); HEMOGLOBIN 11.4 g/dl (12.0-16.0); LYMPH # 2.4 10*3/uL (1.3-4.4); LYMPH % 29.9 % (27.0-41.0); MEAN CELL VOLUME 90.6 fl (81.0-99.0); MEAN CORPUSCULAR HGB 28.1 pg (27.0-31.0); MEAN PLATELET VOLUME 10.7 fl (9.6-12.3); MONO # 0.8 10*3/uL (0.1-1.0); MONO % 10.3 % (3.0-9.0); NEUT # 4.4 10*3/uL (2.3-7.9); NEUT % 54.4 % (47.0-73.0); PLATELET COUNT AUTOMATED 256 10*3/uL (130-400); RED BLOOD COUNT 4.06 10*6/uL (4.10-5.10); RED CELL DISTRI WIDTH 16.1 % (0-14.5); WHITE BLOOD COUNT 8.1 10*3/uL (4.8-10.8)
[2017-08-27 06:44] LABS: ALBUMIN 3.3 gm/dl (3.1-4.5); CHLORIDE 101 mmol/L (98-107); POTASSIUM 3.4 mmol/L (3.5-5.1); SODIUM 141 mmol/L (136-145)
[2017-08-27 06:49] LABS: ALKALINE PHOSPHATASE 95 U/L (45-117); BUN 14 mg/dl (7-24); CREATININE 0.81 mg/dL (0.55-1.02); PHOSPHOROUS 2.8 mg/dL (2.5-4.9); SGOT/AST 23 IU/L (3-35); SGPT/ALT 24 U/L (12-78); TOTAL PROTEIN 6.9 gm/dL (6.4-8.2)
[2017-08-27 08:00] VITALS: BP 152/63
[2017-08-27] MEDS ORDERED: MOVE IT ALONG100 MG PO (09:30)
[2017-08-27 12:00] VITALS: BP 146/70
--- NOTE | 2017-08-27 14:21 | NUR ---
Discharge instructions reviewed with patient/family. Patient receptive and verbalizes understanding. Follow-up care arranged. Written instructions given to patient/family. HEART MONITOR REMOVED AND PLACED IN THE NURSES STATION, IV REMOVED. TRESA KAPOOR
== END 2017-08-27 14:21 | disposition home or self-care (01) | DRG 392 ==
LOC: ED 04:34 → EDHOLD 05:52 → 4E 06:07
PROVIDERS: Family Medicine; Student in an Organized Health Care Education/Training Program; ADMIT Internal Medicine
DX: K59.00 Constipation, unspecified (principal); E11.65 Type 2 diabetes mellitus with hyperglycemia; D64.9 Anemia, unspecified; I25.810 Atherosclerosis of coronary artery bypass graft(s) without angina pectoris; R11.2 Nausea with vomiting, unspecified; M19.90 Unspecified osteoarthritis, unspecified site; Z96.643 Presence of artificial hip joint, bilateral; G89.4 Chronic pain syndrome; G43.909 Migraine, unspecified, not intractable, without status migrainosus; K27.9 Peptic ulcer, site unspecified, unspecified as acute or chronic, without hemorrhage or perforation; K57.90 Diverticulosis of intestine, part unspecified, without perforation or abscess without bleeding; K44.9 Diaphragmatic hernia without obstruction or gangrene; I10 Essential (primary) hypertension; Z86.73 Personal history of transient ischemic attack (TIA), and cerebral infarction without residual deficits; Z95.5 Presence of coronary angioplasty implant and graft; Z90.722 Acquired absence of ovaries, bilateral; Z88.0 Allergy status to penicillin; Z88.2 Allergy status to sulfonamides; Z88.8 Allergy status to other drugs, medicaments and biological substances; Z88.6 Allergy status to analgesic agent; Z88.1 Allergy status to other antibiotic agents; Z91.041 Radiographic dye allergy status; Z79.82 Long term (current) use of aspirin; Z79.899 Other long term (current) drug therapy; Z88.7 Allergy status to serum and vaccine; Z90.49 Acquired absence of other specified parts of digestive tract

== ENCOUNTER 2018-03-29 09:36 | Emergency (ER) | payer MEDICARE ==
[~2018-03-29] VITALS: Ht 152.4 cm; Wt 59.0 kg
[~2018-03-29 09:36] MED LIST changes: +MOVE IT ALONG100 MG PO
[2018-03-29 09:46] LABS: BILIRUBIN NEGATIVE (NEGATIVE); BLOOD NEGATIVE (NEGATIVE); CLARITY CLEAR (CLEAR); COLOR YELLOW (YELLOW); GLUCOSE NEGATIVE (NEGATIVE); KETONE NEGATIVE (NEGATIVE); LEUKO ESTERASE NEGATIVE (NEGATIVE); NITRITE NEGATIVE (NEGATIVE); SPECIFIC GRAVITY <= 1.005 (1.005-1.030); UROBILINOGEN 0.2 E.U./dl (0.2-1.0)
[2018-03-29 09:57] LABS: BASO # 0.1 10*3/uL (0.0-0.1); BASO % 0.6 % (0.0-1.0); EOS # 0.3 10*3/uL (0.0-0.4); EOS % 3.1 % (1.0-4.0); HEMATOCRIT 34.7 % (37.0-47.0); HEMOGLOBIN 10.6 g/dl (12.0-16.0); LYMPH % 20.8 % (27.0-41.0); MEAN CELL VOLUME 89.2 fl (81.0-99.0); MEAN CORPUSCULAR HGB 27.2 pg (27.0-31.0); MEAN CORPUSCULAR HGB CONC 30.5 g/dl (33.0-37.0); MEAN PLATELET VOLUME 9.3 fl (9.6-12.3); MONO # 0.7 10*3/uL (0.1-1.0); MONO % 7.1 % (3.0-9.0); NEUT # 6.5 10*3/uL (2.3-7.9); PLATELET COUNT AUTOMATED 274 10*3/uL (130-400); RED BLOOD COUNT 3.89 10*6/uL (4.10-5.10); RED CELL DISTRI WIDTH 15.5 % (0-14.5); WHITE BLOOD COUNT 9.5 10*3/uL (4.8-10.8)
[2018-03-29 10:16] LABS: ALBUMIN 3.5 gm/dl (3.1-4.5); ALKALINE PHOSPHATASE 114 U/L (45-117); BUN 14 mg/dl (7-24); CHLORIDE 101 mmol/L (98-107); CREATININE 0.79 mg/dL (0.55-1.02); POTASSIUM 3.5 mmol/L (3.5-5.1); SGOT/AST 11 IU/L (3-35); SGPT/ALT 18 U/L (12-78); SODIUM 141 mmol/L (136-145); TOTAL PROTEIN 7.4 gm/dL (6.4-8.2)
[2018-03-29 10:27] LABS: BACTERIA TRACE
[2018-03-29 10:32] VITALS: BP 122/50
[2018-03-29] MEDS ORDERED: PYRIDIUM200 M1 PO (11:40)
[2018-04-17] MEDS ORDERED: CIPRO500 MG PO (19:15)
[2018-04-17] MEDS ORDERED: FLAGYL500 MG PO (19:15)
== END 2018-03-29 12:45 | disposition home or self-care (01) ==
LOC: ED 09:36
PROVIDERS: Emergency Medicine
DX: N39.0 Urinary tract infection, site not specified (principal); R10.2 Pelvic and perineal pain; I25.10 Atherosclerotic heart disease of native coronary artery without angina pectoris; G89.4 Chronic pain syndrome; E11.65 Type 2 diabetes mellitus with hyperglycemia; G43.909 Migraine, unspecified, not intractable, without status migrainosus; M19.90 Unspecified osteoarthritis, unspecified site; Z87.11 Personal history of peptic ulcer disease; Z90.49 Acquired absence of other specified parts of digestive tract; Z95.1 Presence of aortocoronary bypass graft; Z96.643 Presence of artificial hip joint, bilateral; Z98.890 Other specified postprocedural states; Z79.82 Long term (current) use of aspirin; Z79.899 Other long term (current) drug therapy; Z91.041 Radiographic dye allergy status; Z88.0 Allergy status to penicillin; Z88.2 Allergy status to sulfonamides; Z88.7 Allergy status to serum and vaccine; Z88.6 Allergy status to analgesic agent; Z88.8 Allergy status to other drugs, medicaments and biological substances

== ENCOUNTER 2018-04-18 07:29 | Inpatient (IN) | payer MEDICARE ==
[~2018-04-18] VITALS: Ht 147.3 cm; Wt 53.3 kg
--- NOTE | ~2018-04-18 | EKG ---
[place], [place] ELECTROCARDIOGRAM REPORT NAME: ADELINA PISANO UNIT #: [id number] ROOM: 529 DOCTOR: DANI DRAFT REPORT BIRTHDATE: [birth year] [facility] Test Date: 2018-04-18 Test Time: 17:31:57 Pat Name: ADELINA PISANO Department: Room: 529 1 Gender: F Electronic Scale Assembler And Tester: TL : 1930 Requested By: TAMMY BROWN Order Number: [id number] Reading MD: Denzel Toro MD Measurements Intervals [place] Rate: 81 P: 6 [place]: 160 QRS: -66 QRSD: 151 T: 19 QT: 441 QTc: 512 Interpretive Statements Sinus rhythm Multiple ventricular premature complexes RBBB and LAFB Probable left ventricular hypertrophy No change from earlier ECG this date. Electronically Signed On 04-19-2018 7:02:16 PDT by Denzel Toro MD CM:EKGRPT:ELECTROCARDIOGRAM REPORT [id number] 0702 TAMMY GEIGER DRAFT REPORT TAMMY BROWN DO
--- NOTE | ~2018-04-18 | EKG ---
[place], [place] ELECTROCARDIOGRAM REPORT NAME: ADELINA PISANO UNIT #: [id number] ROOM: 529 DOCTOR: DANI DRAFT REPORT BIRTHDATE: [birth year] [facility] Test Date: 2018-04-18 Test Time: 07:58:13 Pat Name: ADELINA PISANO Department: Room: 529 Gender: F Biochemistry Teacher: : 1930 Requested By: PIERRE MISTRY Order Number: [id number] Reading MD: Denzel Toro MD Measurements Intervals [place] Rate: 83 P: -4 [place]: 188 QRS: -69 QRSD: 147 T: 15 QT: 434 QTc: 510 Interpretive Statements Sinus rhythm RBBB and LAFB Baseline wander in lead(s) I,II,aVR Electronically Signed On 04-19-2018 6:58:55 PDT by Denzel Toro MD CM:EKGRPT:ELECTROCARDIOGRAM REPORT [id number] [id number] PIERRE GEIGER DRAFT REPORT PIERRE MISTRY DO
[~2018-04-18 07:29] MED LIST changes: +PYRIDIUM200 M1 PO
[2018-04-18 07:37] VITALS: BP 168/82
[2018-04-18 08:08] LABS: BASO # 0.1 10*3/uL (0.0-0.1); BASO % 0.9 % (0.0-1.0); EOS # 0.5 10*3/uL (0.0-0.4); EOS % 6.5 % (1.0-4.0); HEMATOCRIT 40.3 % (37.0-47.0); HEMOGLOBIN 12.4 g/dl (12.0-16.0); LYMPH # 2.2 10*3/uL (1.3-4.4); LYMPH % 30.1 % (27.0-41.0); MEAN CELL VOLUME 87.8 fl (81.0-99.0); MEAN CORPUSCULAR HGB CONC 30.8 g/dl (33.0-37.0); MEAN PLATELET VOLUME 10.1 fl (9.6-12.3); MONO # 0.6 10*3/uL (0.1-1.0); NEUT % 54.4 % (47.0-73.0); PLATELET COUNT AUTOMATED 275 10*3/uL (130-400); RED BLOOD COUNT 4.59 10*6/uL (4.10-5.10); RED CELL DISTRI WIDTH 15.1 % (0-14.5); WHITE BLOOD COUNT 7.4 10*3/uL (4.8-10.8)
[2018-04-18 08:23] LABS: ACT PARTIAL THROMBO TIME 28.6 SECONDS (20.8-31.5); ALKALINE PHOSPHATASE 117 U/L (45-117); BUN 7 mg/dl (7-24); CHLORIDE 101 mmol/L (98-107); CREATININE 0.71 mg/dL (0.55-1.02); LIPASE 39 U/L (73-393); POTASSIUM 3.5 mmol/L (3.5-5.1); SGOT/AST 22 IU/L (3-35); SGPT/ALT 23 U/L (12-78); SODIUM 139 mmol/L (136-145); TOTAL PROTEIN 8.5 gm/dL (6.4-8.2)
[2018-04-18 08:40] LABS: TROPONIN I < 0.015 ng/ml (<0.045)
[2018-04-18 08:57] LABS: BILIRUBIN NEGATIVE (NEGATIVE); BLOOD TRACE-LYSED (NEGATIVE); CLARITY CLEAR (CLEAR); COLOR YELLOW (YELLOW); GLUCOSE NEGATIVE (NEGATIVE); KETONE NEGATIVE (NEGATIVE); LEUKO ESTERASE NEGATIVE (NEGATIVE); NITRITE NEGATIVE (NEGATIVE); PH 7.5 (5.0-9.0); SPECIFIC GRAVITY 1.015 (1.005-1.030); UROBILINOGEN 0.2 E.U./dl (0.2-1.0)
[2018-04-18 10:46] VITALS: BP 140/80
[2018-04-18 16:00] VITALS: BP 88/73
[2018-04-18 20:00] VITALS: BP 132/68; BP 156/87
[2018-04-19] VITALS: BP 154/72
[2018-04-19 07:23] LABS: BASO % 0.6 % (0.0-1.0); EOS # 0.6 10*3/uL (0.0-0.4); EOS % 7.6 % (1.0-4.0); HEMATOCRIT 35.4 % (37.0-47.0); HEMOGLOBIN 10.6 g/dl (12.0-16.0); LYMPH # 2.2 10*3/uL (1.3-4.4); LYMPH % 30.4 % (27.0-41.0); MEAN CELL VOLUME 90.3 fl (81.0-99.0); MEAN CORPUSCULAR HGB CONC 29.9 g/dl (33.0-37.0); MEAN PLATELET VOLUME 10.6 fl (9.6-12.3); MONO # 0.8 10*3/uL (0.1-1.0); MONO % 11.3 % (3.0-9.0); NEUT # 3.6 10*3/uL (2.3-7.9); PLATELET COUNT AUTOMATED 241 10*3/uL (130-400); RED BLOOD COUNT 3.92 10*6/uL (4.10-5.10); RED CELL DISTRI WIDTH 15.2 % (0-14.5); WHITE BLOOD COUNT 7.2 10*3/uL (4.8-10.8)
[2018-04-19 07:40] LABS: ALBUMIN 3.4 gm/dl (3.1-4.5); ALKALINE PHOSPHATASE 91 U/L (45-117); BUN 11 mg/dl (7-24); CHLORIDE 106 mmol/L (98-107); CHOLESTEROL 191 mg/dL (<200); CREATININE 0.63 mg/dL (0.55-1.02); FREE T4 0.91 ng/dl (0.76-1.46); HDL CHOLESTEROL 62 mg/dl (40-60); LDL CHOLESTEROL 105 mg/dL (9-159); POTASSIUM 3.2 mmol/L (3.5-5.1); SGOT/AST 18 IU/L (3-35); SGPT/ALT 20 U/L (12-78); SODIUM 143 mmol/L (136-145); TOTAL PROTEIN 7.1 gm/dL (6.4-8.2); TRIGLYCERIDES 120 mg/dl (<150); VLDL CHOLESTEROL 24 mg/dL (6-40)
[2018-04-19 08:00] VITALS: BP 140/82
[2018-04-19 08:11] LABS: VITAMIN D, 25-HYDROXY 28.6 ng/mL (30-100)
[2018-04-19 12:00] VITALS: BP 104/61
[2018-04-19] MEDS ORDERED: DOXYCYCLINE100 M3 PO (12:21)
== END 2018-04-19 15:03 | disposition home or self-care (01) | DRG 690 ==
LOC: ED 07:29 → EDHOLD 09:32 → 5E 09:32
PROVIDERS: Emergency Medicine; Registered Nurse
DX: N39.0 Urinary tract infection, site not specified (principal); J96.10 Chronic respiratory failure, unspecified whether with hypoxia or hypercapnia; E11.65 Type 2 diabetes mellitus with hyperglycemia; I10 Essential (primary) hypertension; I25.10 Atherosclerotic heart disease of native coronary artery without angina pectoris; Z96.643 Presence of artificial hip joint, bilateral; G89.4 Chronic pain syndrome; K59.00 Constipation, unspecified; K57.90 Diverticulosis of intestine, part unspecified, without perforation or abscess without bleeding; M19.90 Unspecified osteoarthritis, unspecified site; Z87.11 Personal history of peptic ulcer disease; Z90.49 Acquired absence of other specified parts of digestive tract; Z95.1 Presence of aortocoronary bypass graft; Z90.710 Acquired absence of both cervix and uterus; Z90.722 Acquired absence of ovaries, bilateral; Z86.73 Personal history of transient ischemic attack (TIA), and cerebral infarction without residual deficits; Z83.1 Family history of other infectious and parasitic diseases; Z88.0 Allergy status to penicillin; Z88.2 Allergy status to sulfonamides; Z88.7 Allergy status to serum and vaccine; Z88.8 Allergy status to other drugs, medicaments and biological substances; Z88.6 Allergy status to analgesic agent; Z91.041 Radiographic dye allergy status; Z79.82 Long term (current) use of aspirin; Z79.899 Other long term (current) drug therapy

== ENCOUNTER 2018-07-15 18:09 | Inpatient (IN) | payer MEDICARE ==
[~2018-07-15] VITALS: Ht 147.3 cm; Wt 57.3 kg
--- NOTE | ~2018-07-15 | CON ---
[place], [place] REPORT OF CONSULTATION [id number] UNIT #: [id number] ROOM: 507 DOCTOR: ALAN PATEL MD BIRTHDATE: [birth year] DOS: 07/17/2018 REASON FOR CONSULTATION: Consulted because of palpitations. HISTORY OF PRESENT ILLNESS: An 88-year-old patient admitted with a rapid heartbeat and the patient was having frequent PVCs. The patient complains of chest tightness, discomfort and indigestion reported past medical history of bypass 10 years ago. She follows with Dr. Polanco and had a stress test more than a year ago. The patient states that these palpitations started recently and developed some indigestion and some chest tightness and heaviness as mentioned a stress test was done about a year ago. PAST MEDICAL HISTORY: Significant for coronary artery disease, hypertension, hyperlipidemia, CVA, chronic pain syndrome, hyperglycemia, migraine medication. PAST SURGICAL HISTORY: History of bypass surgery, abdominal hysterectomy, right hip replacement, history of a decompressive lumbar laminectomy. SOCIAL HISTORY: Current nondrinker of alcohol, denies any drug abuse. FAMILY HISTORY: Positive for coronary artery disease. ALLERGIES: IVP DYE, PENICILLIN AND HYDROCHLOROTHIAZIDE, NITROFURANTOIN, AMLODIPINE, FOSINOPRIL, AND LISINOPRIL. HOME MEDICATIONS: Aspirin, diltiazem, and Tramadol. REVIEW OF SYSTEMS: CONSTITUTIONAL: No fever, no chills. HEENT: No visual disturbance or hearing problems. RESPIRATORY: No shortness of breath, abdominal pain. GASTROINTESTINAL: No nausea, no vomiting. GENITOURINARY: No dysuria. CARDIOVASCULAR: As per HPI. VITAL SIGNS: Blood pressure today is 150/70, heart rate is 85. The patient is having some PVCs and bigeminy. HEENT: Unremarkable. NECK: Supple, no JVD. LUNGS: Clear. HEART: Sounds are regular. ABDOMEN: Soft, nontender. NEUROLOGICAL: Potassium is 3.1 initially and repeat is still pending. LABORATORY DATA: Electrolytes are normal. Hemoglobin A1c 6.2, hemoglobin 11.1, hematocrit 35.9. EKG sinus with nonspecific ST changes and PVCs. IMPRESSION: The patient with palpitations and PVCs with atypical chest pain, diabetes, hypertension, hyperlipidemia. RECOMMENDATIONS: I will get an echocardiogram add small dose of beta blockers. [place], [place] REPORT OF CONSULTATION NAME: ADELINA PISANO UNIT #: [id number] ROOM: 507 DOCTOR: ALAN PATEL MD BIRTHDATE: [birth year] We will try to obtain the echo report, obtain a stress report from Dr. Polanco's office. Continue the present medications and will follow up. ALAN PATEL MD CM:CONSTR:REPORT OF CONSULTATION 0713 07/25/18 0650 interface
--- NOTE | ~2018-07-15 | EKG ---
[place], [place] ELECTROCARDIOGRAM REPORT NAME: ADELINA PISANO UNIT #: [id number] ROOM: 507 DOCTOR: DANI DRAFT REPORT BIRTHDATE: [birth year] [facility] Test Date: 2018-07-15 Test Time: 23:55:29 Pat Name: ADELINA PISANO Department: Room: 507 Gender: F Derrick Boat Operator: Marysol Ledesma : 1930 Requested By: PATRICE CRUZ Order Number: [id number] Reading MD: Mingo Cesar MD Measurements Intervals [place] Rate: 71 P: -27 [place]: 171 QRS: -67 QRSD: 159 T: 7 QT: 452 QTc: 492 Interpretive Statements Sinus rhythm RBBB and LAFB Probable left ventricular hypertrophy Baseline wander in lead(s) V3 Compared to ECG 04/18/2018 17:31:57 Ventricular premature complex(es) no longer present Electronically Signed On 07-16-2018 8:07:08 PDT by Mingo Cesar MD CM:EKGRPT:ELECTROCARDIOGRAM REPORT [id number] [id number] PATRICE LOUISE DRAFT REPORT PATRICE CRUZ MD
--- NOTE | ~2018-07-15 | EKG ---
[place], [place] ELECTROCARDIOGRAM REPORT NAME: ADELINA PISANO UNIT #: [id number] ROOM: 507 DOCTOR: DANI DRAFT REPORT BIRTHDATE: [birth year] [facility] Test Date: 2018-07-20 Test Time: 05:26:05 Pat Name: ADELINA PISANO Department: 4E Room: 405 Gender: F Farmworker Machine: Arash Edwards : 1930 Requested By: IKE MARKHAM Order Number: [id number] Reading MD: Mingo Cesar MD Measurements Intervals [place] Rate: 65 P: 10 [place]: 252 QRS: -62 QRSD: 150 T: 4 QT: 459 QTc: 478 Interpretive Statements Sinus rhythm Prolonged [place] interval RBBB and LAFB Probable left ventricular hypertrophy Compared to ECG 07/15/2018 23:55:29 First degree AV block now present Electronically Signed On 07-23-2018 8:16:28 PST by Mingo Cesar MD CM:EKGRPT:ELECTROCARDIOGRAM REPORT 5 5 IKE GEIGER DRAFT REPORT
--- NOTE | ~2018-07-15 | EKG ---
[place], [place] ELECTROCARDIOGRAM REPORT NAME: ADELINA PISANO UNIT #: [id number] ROOM: 507 DOCTOR: DANI DRAFT REPORT BIRTHDATE: [birth year] [facility] Test Date: 2018-07-15 Test Time: 18:14:10 Pat Name: ADELINA PISANO Department: Room: 507 Gender: F Sander And Buffer: Janiya Hudson : 1930 Requested By: PATRICE CRUZ Order Number: [id number] Reading MD: Mingo Cesar MD Measurements Intervals [place] Rate: 94 P: 40 [place]: 202 QRS: -63 QRSD: 149 T: 36 QT: 445 QTc: 557 Interpretive Statements Sinus rhythm Ventricular bigeminy RBBB and LAFB Left ventricular hypertrophy Compared to ECG 04/18/2018 17:31:57 No significant changes Electronically Signed On 07-16-2018 8:05:53 PDT by Mingo Cesar MD CM:EKGRPT:ELECTROCARDIOGRAM REPORT [id number] PATRICE CRUZ MD EPIPHANY DRAFT REPORT PATRICE CRUZ MD
--- NOTE | ~2018-07-15 | EKG ---
[place], [place] ELECTROCARDIOGRAM REPORT NAME: ADELINA PISANO UNIT #: [id number] ROOM: 507 DOCTOR: DANI DRAFT REPORT BIRTHDATE: [birth year] [facility] Test Date: 2018-07-20 Test Time: 02:31:00 Pat Name: ADELINA PISANO Department: Room: 405 Gender: F Insole Rounder: Arash Edwards : 1930 Requested By: IKE MARKHAM Order Number: [id number] Reading MD: Mingo Cesar MD Measurements Intervals [place] Rate: 70 P: 18 [place]: 186 QRS: -63 QRSD: 151 T: 9 QT: 462 QTc: 499 Interpretive Statements Sinus rhythm RBBB and LAFB Probable left ventricular hypertrophy Compared to ECG 07/15/2018 23:55:29 No significant changes Electronically Signed On 07-23-2018 8:16:21 PST by Mingo Cesar MD CM:EKGRPT:ELECTROCARDIOGRAM REPORT [id number] 0816 IKE GEIGER DRAFT REPORT
--- NOTE | ~2018-07-15 | EKG ---
[place], [place] ELECTROCARDIOGRAM REPORT NAME: ADELINA PISANO UNIT #: [id number] ROOM: 507 DOCTOR: DANI DRAFT REPORT BIRTHDATE: [birth year] [facility] Test Date: 2018-07-15 Test Time: 21:20:22 Pat Name: ADELINA PISANO Department: Room: 507 Gender: F Graphics Intern: ANAMARIA : 1930 Requested By: PATRICE CRUZ Order Number: [id number] Reading MD: Mingo Cesar MD Measurements Intervals [place] Rate: 74 P: 15 [place]: 196 QRS: -71 QRSD: 156 T: 3 QT: 453 QTc: 503 Interpretive Statements Sinus rhythm Probable left atrial enlargement RBBB and LAFB Left ventricular hypertrophy Compared to ECG 04/18/2018 17:31:57 Ventricular premature complex(es) no longer present Electronically Signed On 07-16-2018 8:06:32 PDT by Mingo Cesar MD CM:EKGRPT:ELECTROCARDIOGRAM REPORT [id number] PATRICE CRUZ MD EPIPHANY DRAFT REPORT PATRICE CRUZ MD
[2018-07-15 18:15] VITALS: BP 136/90; BP 156/90
[2018-07-15 18:25] LABS: BASO # 0.1 10*3/uL (0.0-0.1); BASO % 0.5 % (0.0-1.0); EOS # 0.3 10*3/uL (0.0-0.4); HEMATOCRIT 35.2 % (37.0-47.0); LYMPH % 34.8 % (27.0-41.0); MEAN CELL VOLUME 87.8 fl (81.0-99.0); MEAN CORPUSCULAR HGB 27.4 pg (27.0-31.0); MEAN CORPUSCULAR HGB CONC 31.3 g/dl (33.0-37.0); MEAN PLATELET VOLUME 10.7 fl (9.6-12.3); MONO % 8.5 % (3.0-9.0); NEUT # 6.1 10*3/uL (2.3-7.9); PLATELET COUNT AUTOMATED 256 10*3/uL (130-400); RED BLOOD COUNT 4.01 10*6/uL (4.10-5.10); RED CELL DISTRI WIDTH 15.9 % (0-14.5); WHITE BLOOD COUNT 11.4 10*3/uL (4.8-10.8)
[2018-07-15 18:44] LABS: ALBUMIN 3.6 gm/dl (3.1-4.5); ALKALINE PHOSPHATASE 99 U/L (45-117); BUN 15 mg/dl (7-24); CHLORIDE 101 mmol/L (98-107); CREATININE 0.75 mg/dL (0.55-1.02); POTASSIUM 3.5 mmol/L (3.5-5.1); SGOT/AST 22 IU/L (3-35); SGPT/ALT 18 U/L (12-78); SODIUM 139 mmol/L (136-145); TOTAL PROTEIN 7.5 gm/dL (6.4-8.2); TROPONIN I 0.016 ng/ml (<0.045)
[2018-07-15 19:58] VITALS: BP 138/74
[2018-07-15 20:20] VITALS: BP 160/70
[2018-07-15] MEDS ORDERED: OXYGEN NAS (20:55)
[2018-07-15] MEDS ORDERED: PRESERVISION A1 EAC2 PO (20:55)
[2018-07-15] MEDS ORDERED: Zofran4 MG SL (21:04)
[2018-07-16] VITALS (8 sets, daily range): BP systolic 99–170; BP diastolic 59–84
[2018-07-16 07:01] LABS: BASO # 0.1 10*3/uL (0.0-0.1); BASO % 0.7 % (0.0-1.0); EOS # 0.4 10*3/uL (0.0-0.4); EOS % 4.8 % (1.0-4.0); HEMATOCRIT 35.9 % (37.0-47.0); HEMOGLOBIN 11.1 g/dl (12.0-16.0); LYMPH # 3.3 10*3/uL (1.3-4.4); LYMPH % 36.1 % (27.0-41.0); MEAN CELL VOLUME 88.2 fl (81.0-99.0); MEAN CORPUSCULAR HGB 27.3 pg (27.0-31.0); MEAN CORPUSCULAR HGB CONC 30.9 g/dl (33.0-37.0); MEAN PLATELET VOLUME 11.3 fl (9.6-12.3); MONO # 0.9 10*3/uL (0.1-1.0); MONO % 9.4 % (3.0-9.0); NEUT # 4.4 10*3/uL (2.3-7.9); NEUT % 48.8 % (47.0-73.0); PLATELET COUNT AUTOMATED 246 10*3/uL (130-400); RED BLOOD COUNT 4.07 10*6/uL (4.10-5.10)
[2018-07-16 07:18] LABS: BUN 11 mg/dl (7-24); CHLORIDE 103 mmol/L (98-107); CREATININE 0.55 mg/dL (0.55-1.02); POTASSIUM 3.1 mmol/L (3.5-5.1); SODIUM 141 mmol/L (136-145)
[2018-07-16 07:21] LABS: CHOLESTEROL 188 mg/dL (<200); PHOSPHOROUS 2.7 mg/dL (2.5-4.9); TRIGLYCERIDES 112 mg/dl (<150); VLDL CHOLESTEROL 22 mg/dL (6-40)
[2018-07-16 07:29] LABS: FREE T4 0.96 ng/dl (0.76-1.46); HDL CHOLESTEROL 69 mg/dl (40-60); LDL CHOLESTEROL 97 mg/dL (9-159)
[2018-07-16 07:46] LABS: VITAMIN D, 25-HYDROXY 36.4 ng/mL (30-100)
[2018-07-17] VITALS (7 sets, daily range): BP systolic 120–162; BP diastolic 50–78
[2018-07-18] VITALS: BP 153/53
[2018-07-18 09:20] VITALS: BP 124/67
[2018-07-18 12:00] VITALS: BP 130/56
[2018-07-18] MEDS ORDERED: LOPRESSOR25 MG PO (14:34)
[2018-07-29] MEDS ORDERED: LOPRESSOR25 MG PO (09:25)
== END 2018-07-18 15:30 | disposition home or self-care (01) | DRG 392 ==
LOC: ED 18:09 → EDHOLD 18:44 → 5E 18:44
PROVIDERS: Emergency Medicine; Internal Medicine
DX: K21.9 Gastro-esophageal reflux disease without esophagitis (principal); E44.0 Moderate protein-calorie malnutrition; J96.10 Chronic respiratory failure, unspecified whether with hypoxia or hypercapnia; I25.10 Atherosclerotic heart disease of native coronary artery without angina pectoris; Z86.73 Personal history of transient ischemic attack (TIA), and cerebral infarction without residual deficits; G89.4 Chronic pain syndrome; K59.00 Constipation, unspecified; E11.9 Type 2 diabetes mellitus without complications; K57.90 Diverticulosis of intestine, part unspecified, without perforation or abscess without bleeding; E87.6 Hypokalemia; D64.9 Anemia, unspecified; E83.41 Hypermagnesemia; I10 Essential (primary) hypertension; Z96.643 Presence of artificial hip joint, bilateral; M19.90 Unspecified osteoarthritis, unspecified site; Z88.0 Allergy status to penicillin; Z88.2 Allergy status to sulfonamides; Z88.1 Allergy status to other antibiotic agents; Z91.041 Radiographic dye allergy status; Z87.11 Personal history of peptic ulcer disease; Z90.49 Acquired absence of other specified parts of digestive tract; Z95.1 Presence of aortocoronary bypass graft; Z90.710 Acquired absence of both cervix and uterus; Z83.3 Family history of diabetes mellitus; Z68.25 Body mass index [BMI] 25.0-25.9, adult

== ENCOUNTER 2018-07-19 23:15 | Inpatient (IN) | payer MEDICARE ==
[~2018-07-19] VITALS: Ht 149.8 cm; Wt 56.9 kg
--- NOTE | ~2018-07-19 | CON ---
[place], [place] REPORT OF CONSULTATION [id number] UN[facility] #: [id number] ROOM: 405 DOCTOR: RICARDO MCKEE MD BIRTHDATE: [birth year] DOS: 07/20/2018 HISTORY OF PRESENT ILLNESS: This is an 88-year-old -Vincentian woman who lives at home and is independent and is of sound mind. She has coronary artery disease and had 6-vessel bypass surgery some 11 years ago and was done in [place]. She has never had congestive heart failure, any rhythm disorder of the heart that she knows of, stroke, cancer, COPD. She had peptic ulcer disease diagnosed in the remote past. She does not have any kidney problems, but does have essential hypertension, hiatus hernia, low history of back pain and anemia, osteoarthritis. She was admitted to this hospital 4 days ago with some chest tightness and heaviness. She had atrial ventricular ectopy at that time and symptoms settled down. She ruled out for acute myocardial infarction and went home and came back again with some discomfort in the epigastrium and the lower part of the chest. She did not feel this radiating into back or into the shoulders or the neck. No sweating, nausea, palpitations or any breathing difficulty with this symptom. However, she has been feeling weak for the last 1 month. She does not seem to ____ she had previously. No PND, orthopnea or swelling of the lower extremities. HOME MEDICATIONS: Include acetaminophen, diltiazem CD 180 daily, furosemide 20 mg daily, milk of magnesia, gabapentin 300 b.i.d., metoprolol 25 mg b.i.d., Protonix 40 mg daily, temazepam 15 mg at bedtime. PHYSICAL EXAMINATION: GENERAL: The patient is very pleasant, alert, oriented. She is comfortable. She is not in any distress. No finger clubbing. VITAL SIGNS: Pulse is 72 and regular, blood pressure 170/84, weight has been elevated since admission. NECK: JVP is normal. There is no carotid bruit. HEART: There is no cardiomegaly. No murmurs are present. Pedal pulses are palpable. EXTREMITIES: There is no edema in lower extremities. RESPIRATORY: She has normal percussion bilaterally; however, there are a lot of crackles over most of the right lung posteriorly and some in the left base. ABDOMEN: Supple, nontender. No bruit or pulsatile mass. 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 Troponin I level is normal. Chest x-ray demonstrated normal heart size and no acute changes, no pneumothorax. IMPRESSION: This patient with coronary artery disease, status post multiple coronary artery bypass grafts, has had fatigue for the last 1 month and had a couple of episodes of chest discomfort and heaviness. This may represent myocardial ischemia. She has ruled out for acute myocardial infarction. [place], [place] REPORT OF CONSULTATION NAME: ADELINA PISANO UNIT #: [id number] ROOM: 405 DOCTOR: RYLEE GARCIA,RICARDO BIRTHDATE: [birth year] I have recommended a Lexiscan Cardiolite study and she declined that. She would want to go home and then have it done by Dr. Abad Polanco. CURRENT RECOMMENDATIONS: Current medication to be continued, do add lisinopril 5 mg to control hypertension and also start Imdur 30 mg once a day along with Ranexa 500 b.i.d. Early follow up with Dr. Melgoza.. I thank you on behalf of Dr. Cesar for this consult. RICARDO MCKEE MD CM:CONSTR:REPORT OF CONSULTATION 1155 07/20/18 1755 interface
--- NOTE | ~2018-07-19 | EKG ---
[place], [place] ELECTROCARDIOGRAM REPORT NAME: ADELINA PISANO UNIT #: [id number] ROOM: DOCTOR: DANI DRAFT REPORT BIRTHDATE: [birth year] [facility] Test Date: 2018-07-19 Test Time: 23:22:44 Pat Name: ADELINA PISANO Department: Room: Gender: F Remarketing Rep: : 1930 Requested By: IKE MARKHAM Order Number: [id number] Reading MD: Measurements Intervals [place] Rate: 75 P: -1 TX: 171 QRS: -60 QRSD: 159 T: 18 QT: 433 QTc: 484 Interpretive Statements Sinus rhythm Probable left atrial enlargement RBBB and LAFB Left ventricular hypertrophy Compared to ECG 07/15/2018 23:55:29 No significant changes CM:EKGRPT:ELECTROCARDIOGRAM REPORT 37 IKE GEIGER DRAFT REPORT IKE MARKHAM DO
[~2018-07-19 23:15] MED LIST changes: +LOPRESSOR25 MG PO; +OXYGEN NAS; +PRESERVISION A1 EAC2 PO; +Zofran4 MG SL
[2018-07-19 23:26] VITALS: BP 187/90
[2018-07-20] VITALS (10 sets, daily range): BP systolic 141–187; BP diastolic 55–90
[2018-07-20 00:04] LABS: ACT PARTIAL THROMBO TIME 28.7 SECONDS (20.8-31.5); INTERNATIONAL NORM RATIO 0.9 (2.0-3.5)
[2018-07-20 00:10] LABS: ALBUMIN 4.1 gm/dl (3.1-4.5); ALKALINE PHOSPHATASE 120 U/L (45-117); BUN 16 mg/dl (7-24); CHLORIDE 103 mmol/L (98-107); SGOT/AST 32 IU/L (3-35); SGPT/ALT 28 U/L (12-78); SODIUM 139 mmol/L (136-145); TOTAL PROTEIN 8.3 gm/dL (6.4-8.2)
[2018-07-20 00:13] LABS: TROPONIN I < 0.015 ng/ml (<0.045)
[2018-07-20 00:15] LABS: BASO # 0.1 10*3/uL (0.0-0.1); BASO % 0.5 % (0.0-1.0); EOS # 0.4 10*3/uL (0.0-0.4); EOS % 3.1 % (1.0-4.0); HEMATOCRIT 40.2 % (37.0-47.0); HEMOGLOBIN 12.1 g/dl (12.0-16.0); LYMPH # 3.2 10*3/uL (1.3-4.4); LYMPH % 27.3 % (27.0-41.0); MEAN CELL VOLUME 89.5 fl (81.0-99.0); MEAN CORPUSCULAR HGB 26.9 pg (27.0-31.0); MEAN CORPUSCULAR HGB CONC 30.1 g/dl (33.0-37.0); MEAN PLATELET VOLUME 11.1 fl (9.6-12.3); MONO # 0.9 10*3/uL (0.1-1.0); MONO % 7.7 % (3.0-9.0); NEUT # 7.1 10*3/uL (2.3-7.9); NEUT % 61.1 % (47.0-73.0); PLATELET COUNT AUTOMATED 274 10*3/uL (130-400); RED BLOOD COUNT 4.49 10*6/uL (4.10-5.10); RED CELL DISTRI WIDTH 16.3 % (0-14.5); WHITE BLOOD COUNT 11.6 10*3/uL (4.8-10.8)
[2018-07-20 00:36] LABS: BILIRUBIN NEGATIVE (NEGATIVE); BLOOD NEGATIVE (NEGATIVE); CLARITY CLEAR (CLEAR); COLOR YELLOW (YELLOW); GLUCOSE NEGATIVE (NEGATIVE); KETONE NEGATIVE (NEGATIVE); LEUKO ESTERASE NEGATIVE (NEGATIVE); NITRITE NEGATIVE (NEGATIVE); UROBILINOGEN 0.2 E.U./dl (0.2-1.0)
[2018-07-20 00:53] LABS: WBC 0-2 wbc/hpf (0-5)
[2018-07-20 10:27] LABS: BASO # 0.1 10*3/uL (0.0-0.1); BASO % 0.7 % (0.0-1.0); EOS # 0.4 10*3/uL (0.0-0.4); EOS % 4.7 % (1.0-4.0); HEMATOCRIT 35.4 % (37.0-47.0); HEMOGLOBIN 10.9 g/dl (12.0-16.0); LYMPH # 2.8 10*3/uL (1.3-4.4); LYMPH % 32.6 % (27.0-41.0); MEAN CELL VOLUME 88.1 fl (81.0-99.0); MEAN CORPUSCULAR HGB 27.1 pg (27.0-31.0); MEAN CORPUSCULAR HGB CONC 30.8 g/dl (33.0-37.0); MEAN PLATELET VOLUME 11.1 fl (9.6-12.3); MONO # 0.6 10*3/uL (0.1-1.0); NEUT # 4.6 10*3/uL (2.3-7.9); NEUT % 54.8 % (47.0-73.0); PLATELET COUNT AUTOMATED 246 10*3/uL (130-400); RED BLOOD COUNT 4.02 10*6/uL (4.10-5.10); RED CELL DISTRI WIDTH 16.1 % (0-14.5); WHITE BLOOD COUNT 8.4 10*3/uL (4.8-10.8)
[2018-07-20 10:35] LABS: ALBUMIN 3.4 gm/dl (3.1-4.5); ALKALINE PHOSPHATASE 92 U/L (45-117); BUN 11 mg/dl (7-24); CHLORIDE 105 mmol/L (98-107); POTASSIUM 3.4 mmol/L (3.5-5.1); SGOT/AST 22 IU/L (3-35); SGPT/ALT 24 U/L (12-78); SODIUM 141 mmol/L (136-145); TOTAL PROTEIN 7.3 gm/dL (6.4-8.2)
[2018-07-21] VITALS: BP 145/93
[2018-07-21 06:46] LABS: BASO # 0.1 10*3/uL (0.0-0.1); BASO % 0.7 % (0.0-1.0); EOS # 0.5 10*3/uL (0.0-0.4); EOS % 6.3 % (1.0-4.0); HEMATOCRIT 33.9 % (37.0-47.0); HEMOGLOBIN 10.4 g/dl (12.0-16.0); LYMPH # 3.6 10*3/uL (1.3-4.4); LYMPH % 43.8 % (27.0-41.0); MEAN CELL VOLUME 88.5 fl (81.0-99.0); MEAN CORPUSCULAR HGB 27.2 pg (27.0-31.0); MEAN CORPUSCULAR HGB CONC 30.7 g/dl (33.0-37.0); MEAN PLATELET VOLUME 11.4 fl (9.6-12.3); MONO # 0.7 10*3/uL (0.1-1.0); MONO % 8.5 % (3.0-9.0); NEUT # 3.3 10*3/uL (2.3-7.9); NEUT % 40.5 % (47.0-73.0); PLATELET COUNT AUTOMATED 244 10*3/uL (130-400); RED BLOOD COUNT 3.83 10*6/uL (4.10-5.10); RED CELL DISTRI WIDTH 16.3 % (0-14.5); WHITE BLOOD COUNT 8.2 10*3/uL (4.8-10.8)
[2018-07-21 08:00] VITALS: BP 142/78
[2018-07-21 12:00] VITALS: BP 140/70
[2018-07-21] MEDS ORDERED: RANEXA500 M1 PO (12:19)
[2018-07-21] MEDS ORDERED: LOPRESSOR25 MG PO (12:19)
[2018-07-21] MEDS ORDERED: IMDUR SA30 MG PO (12:19)
[2018-07-29] MEDS ORDERED: LOPRESSOR25 MG PO (09:25)
== END 2018-07-21 13:50 | disposition home health service (06) | DRG 206 ==
LOC: ED 23:15 → 4E 07-20 00:39 → EDHOLD 07-20 00:39 → 4E 07-20 01:07
PROVIDERS: Emergency Medicine; Family Medicine; Internal Medicine
DX: M94.0 Chondrocostal junction syndrome [Tietze] (principal); J96.10 Chronic respiratory failure, unspecified whether with hypoxia or hypercapnia; E44.0 Moderate protein-calorie malnutrition; K21.9 Gastro-esophageal reflux disease without esophagitis; R07.89 Other chest pain; R00.2 Palpitations; E87.6 Hypokalemia; E83.41 Hypermagnesemia; R74.8 Abnormal levels of other serum enzymes; M19.90 Unspecified osteoarthritis, unspecified site; E11.65 Type 2 diabetes mellitus with hyperglycemia; G89.4 Chronic pain syndrome; K27.9 Peptic ulcer, site unspecified, unspecified as acute or chronic, without hemorrhage or perforation; K57.90 Diverticulosis of intestine, part unspecified, without perforation or abscess without bleeding; I70.90 Unspecified atherosclerosis; F41.9 Anxiety disorder, unspecified; I11.9 Hypertensive heart disease without heart failure; I25.10 Atherosclerotic heart disease of native coronary artery without angina pectoris; Z53.29 Procedure and treatment not carried out because of patient's decision for other reasons; Z96.643 Presence of artificial hip joint, bilateral; G43.909 Migraine, unspecified, not intractable, without status migrainosus; Z91.041 Radiographic dye allergy status; Z88.0 Allergy status to penicillin; Z88.2 Allergy status to sulfonamides; Z88.7 Allergy status to serum and vaccine; Z88.1 Allergy status to other antibiotic agents; Z88.8 Allergy status to other drugs, medicaments and biological substances; Z91.048 Other nonmedicinal substance allergy status; Z87.440 Personal history of urinary (tract) infections; Z90.49 Acquired absence of other specified parts of digestive tract; Z95.1 Presence of aortocoronary bypass graft; Z90.710 Acquired absence of both cervix and uterus; Z90.722 Acquired absence of ovaries, bilateral; Z90.79 Acquired absence of other genital organ(s); Z83.3 Family history of diabetes mellitus; Z81.1 Family history of alcohol abuse and dependence; Z84.89 Family history of other specified conditions; Z79.899 Other long term (current) drug therapy; Z79.82 Long term (current) use of aspirin; Z68.25 Body mass index [BMI] 25.0-25.9, adult

== ENCOUNTER → 2018-08-24 | Outpatient (CLI) | payer MEDICARE ==
[~2018-08-24] MED LIST changes: +IMDUR SA30 MG PO; +RANEXA500 M1 PO
[2018-08-24 13:40] LABS: CREATININE 1.1 mg/dL (0.55-1.02)
== END | disposition home or self-care (01) ==
LOC: LAB 12:45
PROVIDERS: Internal Medicine
DX: I10 Essential (primary) hypertension (principal); R00.2 Palpitations

== ENCOUNTER 2018-09-24 14:11 | Inpatient (IN) | payer MEDICARE ==
[~2018-09-24] VITALS: Ht 147.3 cm; Wt 58.5 kg
--- NOTE | ~2018-09-24 | EKG ---
[place], [place] ELECTROCARDIOGRAM REPORT NAME: ADELINA PISANO UNIT #: [id number] ROOM: 410 DOCTOR: DANI DRAFT REPORT BIRTHDATE: [birth year] [facility] Test Date: 2018-09-24 Test Time: 20:02:21 Pat Name: ADELINA PISANO Department: Room: 410 Gender: F Retail Loan Originator Assistant: Chelle Saucedo : 1930 Requested By: PATRICE CRUZ Order Number: [id number] Reading MD: Denzel Toro MD Measurements Intervals [place] Rate: 81 P: -35 ID: 171 QRS: -59 QRSD: 149 T: 5 QT: 449 QTc: 522 Interpretive Statements Sinus rhythm Ventricular bigeminy RBBB and LAFB LVH with secondary repolarization abnormality No change from earlier ECG this date Electronically Signed On 09-25-2018 17:03:19 PST by Denzel Toro MD CM:EKGRPT:ELECTROCARDIOGRAM REPORT 01 1703 PATRICE LOUISE DRAFT REPORT PATRICE CRUZ MD
--- NOTE | ~2018-09-24 | EKG ---
[place], [place] ELECTROCARDIOGRAM REPORT NAME: ADELINA PISANO UNIT #: [id number] ROOM: 410 DOCTOR: DANI DRAFT REPORT BIRTHDATE: [birth year] [facility] Test Date: 2018-09-24 Test Time: 16:55:36 Pat Name: ADELINA PISANO Department: Room: 410 Gender: F Black And White Printer Operator: Chelle Saucedo : 1930 Requested By: PATRICE CRUZ Order Number: [id number] Reading MD: Denzel Toro MD Measurements Intervals [place] Rate: 82 P: 50 KS: 233 QRS: -62 QRSD: 151 T: 31 QT: 411 QTc: 480 Interpretive Statements Sinus rhythm Marked baseline artifact makes interpretation difficult Multiple ventricular premature complexes Prolonged [place] interval Probable left atrial enlargement RBBB and LAFB Left ventricular hypertrophy Compared to ECG 09/24/18 No significant change Electronically Signed On 09-25-2018 16:57:19 PST by Denzel Toro MD CM:EKGRPT:ELECTROCARDIOGRAM REPORT 1655 1657 PATRICE LOUISE DRAFT REPORT PATRICE CRUZ MD
--- NOTE | ~2018-09-24 | CON ---
[place], [place] REPORT OF CONSULTATION NAME: ADELINA PISANO UNIT #: [id number] ROOM: 410 DOCTOR: RICARDO MCKEE MD BIRTHDATE: [birth year] DOS: HISTORY OF PRESENT ILLNESS: This is an 88-year-old wonderful -[place] lady who is of sound mind lives at home and enjoys life. I saw her in July of last year on behalf of Dr. Cesar and he was asked to evaluate her again because of palpitations. She has coronary artery disease and had a 6-vessel coronary artery bypass graft surgery in the remote past and has had palpitations/extra heartbeats for many, many years. She has never had a heart failure, COPD, stroke, cancer or any kidney problem. She has had peptic ulcer disease in the past. She does have essential hypertension, hiatus hernia, chronic low back pain and osteoarthritis. When she was here last time, she had declined a stress test and at that time, Ranexa 500 mg b.i.d. was added. She was admitted to the hospital now because of left-sided abdominal pain and constipation. Apparently, a diagnosis of acute diverticulitis is being entertained. She has had a fluttering in the sensation where her heart seemed to flip and this may have skipped beats. This has been going on for many years and in the last day or two, this has gotten worse, particularly since her abdominal pain. She has no upper back pain nor lower anterior chest heaviness or pressure at least when I talked to her, she uses oxygen at home. Once her O2 saturation declines, she has a pulse ox that she uses at home. No swelling of the lower extremities. She has not passed out. PAST MEDICAL HISTORY: As mentioned above. She has had a hip replacement, lumbar laminectomy, tonsillectomy, hysterectomy, diabetes mellitus. HOME MEDICATIONS: Include aspirin 81 daily, atorvastatin 20 mg daily, diltiazem 180 mg b.i.d., furosemide 20 mg daily, gabapentin 300 mg b.i.d., metoprolol tartrate 25 mg at bedtime, Protonix 40 mg daily, potassium chloride 20 mEq daily, tramadol 50 mg daily, multivitamins and Zofran p.r.n. for nausea. PHYSICAL EXAMINATION: GENERAL: This is a patient who looks much younger than her age. She is rather talkative lady, very pleasant, alert. She has no anemia, thyromegaly. She is not jaundiced, not cyanotic. VITAL SIGNS: Temperature is 99 degrees, pulse is 68 with frequent irregularities and blood pressure 158/62. NECK: JVP is normal. There is no carotid bruit. CARDIOVASCULAR: There is no cardiomegaly. There is a grade 2/6 early peaking systolic murmur over the aortic area. She has excellent pedal pulses and no edema in lower extremity. RESPIRATORY: Breath sounds are fairly decent with very rare crackle in the lower zones. DIAGNOSTIC STUDIES: ECG showed normal sinus rhythm with right bundle-branch block and unifocal PVCs. [place], [place] REPORT OF CONSULTATION NAME: ADELINA PISANO UNIT #: [id number] ROOM: 410 DOCTOR: RICARDO MCKEE MD BIRTHDATE: [birth year] LABORATORY DATA: Hemoglobin 10 g/dL, potassium 3.8. Troponin I levels were less than 0.015. Renal function is normal, potassium 3.7 and magnesium 2.0. IMPRESSION: 1. This patient has coronary artery disease and this is asymptomatic. She did not tell me she had any chest pain or heaviness. No further workup is necessary. 2. Ventricular ectopy is present and this has been noted on her previous admissions. I think a physiologic stress which raises catecholamines may be causing more extrasystoles. She had an echocardiogram last year, which showed normal LV systolic function. The patient does not require any further cardiac workup. I thank you on behalf of Dr. Cesar for this consult. RICARDO MCKEE MD CM:CONSTR:REPORT OF CONSULTATION 10 09/27/18819 interface
--- NOTE | ~2018-09-24 | EKG ---
[place], [place] ELECTROCARDIOGRAM REPORT NAME: ADELINA PISANO UNIT #: [id number] ROOM: 410 DOCTOR: DANI DRAFT REPORT BIRTHDATE: [birth year] [facility] Test Date: 2018-09-24 Test Time: 14:13:26 Pat Name: ADELINA PISANO Department: Room: 410 Gender: F Transcript Evaluator: Janiya Hudson : 1930 Requested By: PATRICE CRUZ Order Number: [id number] Reading MD: Denzel Toro MD Measurements Intervals [place] Rate: 88 P: 38 MD: 220 QRS: -63 QRSD: 151 T: 50 QT: 418 QTc: 506 Interpretive Statements Sinus rhythm Ventricular trigeminy Prolonged [place] interval Probable left atrial enlargement RBBB and LAFB Left ventricular hypertrophy Compared to ECG 07/27/2018 20:47:13 Ventricular premature complex(es) now present First degree AV block now present Electronically Signed On 09-25-2018 16:53:13 PST by Denzel Toro MD CM:EKGRPT:ELECTROCARDIOGRAM REPORT 1413 1653 PATRICE LOUISE DRAFT REPORT PATRICE CRUZ MD
[2018-09-24 14:30] VITALS: BP 156/75
[2018-09-24 14:44] LABS: BASO # 0.1 10*3/uL (0.0-0.1); BASO % 0.4 % (0.0-1.0); EOS # 0.3 10*3/uL (0.0-0.4); EOS % 2.1 % (1.0-4.0); HEMATOCRIT 35.5 % (37.0-47.0); HEMOGLOBIN 10.8 g/dl (12.0-16.0); LYMPH # 2.8 10*3/uL (1.3-4.4); LYMPH % 23.6 % (27.0-41.0); MEAN CELL VOLUME 88.1 fl (81.0-99.0); MEAN CORPUSCULAR HGB 26.8 pg (27.0-31.0); MEAN CORPUSCULAR HGB CONC 30.4 g/dl (33.0-37.0); MEAN PLATELET VOLUME 10.9 fl (9.6-12.3); MONO % 8.7 % (3.0-9.0); NEUT # 7.7 10*3/uL (2.3-7.9); NEUT % 64.9 % (47.0-73.0); PLATELET COUNT AUTOMATED 229 10*3/uL (130-400); RED BLOOD COUNT 4.03 10*6/uL (4.10-5.10); RED CELL DISTRI WIDTH 16.1 % (0-14.5); WHITE BLOOD COUNT 11.9 10*3/uL (4.8-10.8)
[2018-09-24 14:59] LABS: ACT PARTIAL THROMBO TIME 27.7 SECONDS (20.8-31.5)
[2018-09-24 15:05] LABS: ALBUMIN 3.3 gm/dl (3.1-4.5); ALKALINE PHOSPHATASE 100 U/L (45-117); BUN 16 mg/dl (7-24); CHLORIDE 101 mmol/L (98-107); CREATININE 0.81 mg/dL (0.55-1.02); POTASSIUM 3.7 mmol/L (3.5-5.1); SGOT/AST 15 IU/L (3-35); SGPT/ALT 18 U/L (12-78); SODIUM 138 mmol/L (136-145); TOTAL PROTEIN 7.3 gm/dL (6.4-8.2)
[2018-09-24 15:08] LABS: TROPONIN I < 0.015 ng/ml (<0.045)
[2018-09-24 15:46] LABS: BILIRUBIN NEGATIVE (NEGATIVE); BLOOD NEGATIVE (NEGATIVE); CLARITY CLEAR (CLEAR); COLOR YELLOW (YELLOW); GLUCOSE NEGATIVE (NEGATIVE); KETONE NEGATIVE (NEGATIVE); LEUKO ESTERASE NEGATIVE (NEGATIVE); NITRITE NEGATIVE (NEGATIVE); UROBILINOGEN 0.2 E.U./dl (0.2-1.0)
[2018-09-24 16:00] VITALS: BP 142/78
[2018-09-24 16:20] LABS: BACTERIA 1+; RBC 0-2 rbc/hpf (0-2); WBC 0-2 wbc/hpf (0-5)
[2018-09-24 17:00] VITALS: BP 143/81
[2018-09-24 18:10] VITALS: BP 143/81
--- NOTE | 2018-09-24 18:10 | NUR ---
A 88, admitted to , under the services of FAY Byrd DO with a diagnosis of CHEST PAIN AND DIVERTICULITIS. Chief complaint is CHEST PAIN. Patient arrived via bed from ER. Monitor applied. Initial assessment completed. Vital signs taken and recorded. FAY BYRD DO notified of admission to the unit. Orders received. See assessment for past medical history, medications and allergies. Patient and/or family oriented to unit. [facility] visitation policy reviewed. Clothing/patient valuable form completed. JERMAINE LEAL
[2018-09-24] MEDS ORDERED: TOPROL XL25 MG PO (18:38)
[2018-09-24] MEDS ORDERED: LIPITOR20 MG PO (18:39)
[2018-09-24] MEDS ORDERED: KLOR-CON M2020 ME1 PO (18:41)
[2018-09-24] MEDS ORDERED: Lopressor25 MG PO (18:52)
[2018-09-24 18:59] VITALS: BP 143/51
[2018-09-24 20:00] VITALS: BP 134/79
[2018-09-25] VITALS: BP 153/69
--- NOTE | 2018-09-25 06:08 | NUR ---
PATIENT UP IN THE CHAIR THIS MORNING STATING HER BACK HURT PATIENT OFFERED SOMETHING FOR PAIN PATIENT SAID NO SHE WANTS TO SIT IN THE CHAIR FOR AWHILE.
[2018-09-25 06:35] LABS: BASO # 0.1 10*3/uL (0.0-0.1); BASO % 0.5 % (0.0-1.0); EOS # 0.4 10*3/uL (0.0-0.4); EOS % 3.5 % (1.0-4.0); HEMATOCRIT 34.7 % (37.0-47.0); HEMOGLOBIN 10.7 g/dl (12.0-16.0); LYMPH # 2.4 10*3/uL (1.3-4.4); LYMPH % 23.9 % (27.0-41.0); MEAN CELL VOLUME 90.1 fl (81.0-99.0); MEAN CORPUSCULAR HGB 27.8 pg (27.0-31.0); MEAN CORPUSCULAR HGB CONC 30.8 g/dl (33.0-37.0); MEAN PLATELET VOLUME 10.9 fl (9.6-12.3); MONO # 0.9 10*3/uL (0.1-1.0); MONO % 9.3 % (3.0-9.0); NEUT # 6.2 10*3/uL (2.3-7.9); NEUT % 62.5 % (47.0-73.0); PLATELET COUNT AUTOMATED 261 10*3/uL (130-400); RED BLOOD COUNT 3.85 10*6/uL (4.10-5.10); RED CELL DISTRI WIDTH 16.2 % (0-14.5)
[2018-09-25 06:38] LABS: ALBUMIN 3.1 gm/dl (3.1-4.5); ALKALINE PHOSPHATASE 93 U/L (45-117); BUN 11 mg/dl (7-24); CHLORIDE 103 mmol/L (98-107); CHOLESTEROL 197 mg/dL (<200); CREATININE 0.65 mg/dL (0.55-1.02); HDL CHOLESTEROL 66 mg/dl (40-60); LDL CHOLESTEROL 107 mg/dL (9-159); PHOSPHOROUS 2.5 mg/dL (2.5-4.9); POTASSIUM 3.7 mmol/L (3.5-5.1); SGOT/AST 14 IU/L (3-35); SGPT/ALT 17 U/L (12-78); SODIUM 142 mmol/L (136-145); TRIGLYCERIDES 120 mg/dl (<150); VLDL CHOLESTEROL 24 mg/dL (6-40)
[2018-09-25 08:05] LABS: VITAMIN D, 25-HYDROXY 22.4 ng/mL (30-100)
--- NOTE | 2018-09-25 08:13 | NUR ---
ULTRAM GVIEN FOR C/O LT ABDM PAIN. WILL MONITOR.
--- NOTE | 2018-09-25 09:00 | NUR ---
Tractor Trailer Mechanic in to talk to patient. Patient states lives at home with alone. There are noo steps in the home. Physician: nicolás Pharmacy: [facility] health services: no at present Patient's level of ADLs: MINIMAL ASSIST Patient has working utilities: all working DME: cane, home oxygen, portable tanks, nebulizer Follow-up physician's appointment after d/c: will be made by hospitalist nurses director upon discharge Does patient want to access PORTAL?: no Discharge plan discussed with patient, patient lives at home a lone, she is independent in adls and ambulates with a cane, patient has home oxygen, portable tanks, patient continues to drive, discussed a discharge plan and patient stated she would be going home, also discussed with her VNA and she stated [facility] recently discontinued their services but she would like them again, will send a referral to [facility] for when patient is medically stable for discharge, patient denies any other home needs. ROSI BAILEY
--- NOTE | 2018-09-25 09:20 | NUR ---
ULTRAM EFFECTIV PER PT.
--- NOTE | 2018-09-25 10:17 | NUR ---
SPOKE WITH DR. LINN IN RE: CONSULT. HE STATED DR. HOOVER WAS FACTORY HELPER, DR. HOOVER NOTIFIED.
[2018-09-25 12:00] VITALS: BP 119/65
[2018-09-25 16:00] VITALS: BP 155/60
--- NOTE | 2018-09-25 16:24 | NUR ---
DR. HAJI NOTIFIED OF CONSULT.
--- NOTE | 2018-09-25 19:39 | NUR ---
DR HOOVER AT BEDSIDE
--- NOTE | 2018-09-25 19:44 | NUR ---
DR HOOVER AT BEDSIDE
[2018-09-25 20:00] VITALS: BP 118/79
[2018-09-26] VITALS: BP 145/55
[2018-09-26 07:08] LABS: BASO # 0.1 10*3/uL (0.0-0.1); BASO % 0.6 % (0.0-1.0); EOS # 0.5 10*3/uL (0.0-0.4); HEMATOCRIT 32.9 % (37.0-47.0); LYMPH # 2.8 10*3/uL (1.3-4.4); LYMPH % 35.3 % (27.0-41.0); MEAN CELL VOLUME 91.6 fl (81.0-99.0); MEAN CORPUSCULAR HGB 27.9 pg (27.0-31.0); MEAN CORPUSCULAR HGB CONC 30.4 g/dl (33.0-37.0); MEAN PLATELET VOLUME 10.4 fl (9.6-12.3); MONO # 0.8 10*3/uL (0.1-1.0); MONO % 10.4 % (3.0-9.0); NEUT # 3.7 10*3/uL (2.3-7.9); NEUT % 47.6 % (47.0-73.0); PLATELET COUNT AUTOMATED 241 10*3/uL (130-400); RED BLOOD COUNT 3.59 10*6/uL (4.10-5.10); WHITE BLOOD COUNT 7.8 10*3/uL (4.8-10.8)
[2018-09-26 07:44] LABS: CHLORIDE 107 mmol/L (98-107); POTASSIUM 3.8 mmol/L (3.5-5.1); SODIUM 144 mmol/L (136-145)
[2018-09-26 07:49] LABS: BUN 10 mg/dl (7-24)
[2018-09-26 08:00] VITALS: BP 110/70
--- NOTE | 2018-09-26 08:25 | NUR ---
DR BARBER TO FLOOR. ADVANCED PATIENTS DIET TO SOFT DIET
--- NOTE | 2018-09-26 09:00 | NUR ---
case management visits with patient, patient will be going home when medically stable and have OV[facility], no other needs at this time
--- NOTE | 2018-09-26 09:30 | NUR ---
Patient resting quietly with no c/o discomfort. Respirations easy and regular. Vital signs stable. No overt distress. DOUGIE EDMONDS
--- NOTE | 2018-09-26 11:00 | NUR ---
REFUSING LASIX AND MORPHINE.
[2018-09-26 12:00] VITALS: BP 165/81
--- NOTE | 2018-09-26 12:00 | NUR ---
DR HARPER NOTIFIED OF LASIX AND MORPHINE REFUSAL, ALONG WITH DESIRE TO HAVE HOME ULTRAM INSTEAD. PT WILL TAKE HOME LASIX IF IVF D/C'D BECAUSE SHE STATES SHE'S "PEEING ENOUGH". DR HARPER TO MAKE THESE CHANGES.
--- NOTE | 2018-09-26 13:36 | NUR ---
24 HR chart check completed.
[2018-09-26 16:00] VITALS: BP 158/62
--- NOTE | 2018-09-26 16:27 | NUR ---
Occupational Therapy screen completed this date. OT referral received, however patient reports she is independent in all ADLs, ambulation w cane. She c/o abdominal pain and lasix causing her to go frequently to the bathroom. No OT indicated at this time. Discharge home when discharge. Thank you. Keysha Montoya OTR/Jorge
--- NOTE | 2018-09-26 17:01 | NUR ---
PHYSICAL THERAPY PAtient reports she has no PT needs. 100 % (I) functional mobility. D/C PT as patient requests. Thank you for this referral. Dania Connell,PT
[2018-09-26 20:00] VITALS: BP 150/69
[2018-09-27] VITALS: BP 154/66
[2018-09-27 08:00] VITALS: BP 124/86
--- NOTE | 2018-09-27 09:00 | NUR ---
case management visits with patient, patient will be going home when medically stable and have OV[facility], patient denies any other needs at this time
[2018-09-27] MEDS ORDERED: CIPRO500 MG PO (11:33)
[2018-09-27] MEDS ORDERED: FLAGYL500 MG PO (11:33)
--- NOTE | 2018-09-27 16:10 | NUR ---
Discharge instructions reviewed with patient/family. Patient receptive and verbalizes understanding. Follow-up care arranged. Written instructions given to patient/family. IV site and color television console monitor removed. WENDY COCHRAN
== END 2018-09-27 16:10 | disposition home health service (06) | DRG 206 ==
LOC: ED 14:11 → 4E 17:25 → EDHOLD 17:25 → 4E 17:34
PROVIDERS: Emergency Medicine; Nurse Practitioner Family; Student in an Organized Health Care Education/Training Program; ADMIT Internal Medicine
DX: M94.0 Chondrocostal junction syndrome [Tietze] (principal); K57.92 Diverticulitis of intestine, part unspecified, without perforation or abscess without bleeding; I25.810 Atherosclerosis of coronary artery bypass graft(s) without angina pectoris; K27.9 Peptic ulcer, site unspecified, unspecified as acute or chronic, without hemorrhage or perforation; K21.9 Gastro-esophageal reflux disease without esophagitis; F41.9 Anxiety disorder, unspecified; I11.9 Hypertensive heart disease without heart failure; I48.91 Unspecified atrial fibrillation; Z96.643 Presence of artificial hip joint, bilateral; K44.9 Diaphragmatic hernia without obstruction or gangrene; G89.4 Chronic pain syndrome; M19.90 Unspecified osteoarthritis, unspecified site; I70.90 Unspecified atherosclerosis; E11.65 Type 2 diabetes mellitus with hyperglycemia; K59.01 Slow transit constipation; K57.30 Diverticulosis of large intestine without perforation or abscess without bleeding; D64.9 Anemia, unspecified; Z90.49 Acquired absence of other specified parts of digestive tract; Z90.710 Acquired absence of both cervix and uterus; Z88.0 Allergy status to penicillin; Z88.2 Allergy status to sulfonamides; Z95.1 Presence of aortocoronary bypass graft; Z88.8 Allergy status to other drugs, medicaments and biological substances; Z88.1 Allergy status to other antibiotic agents; Z91.041 Radiographic dye allergy status; Z79.899 Other long term (current) drug therapy

== ENCOUNTER 2018-12-30 08:09 | Inpatient (IN) | payer MEDICARE ==
[~2018-12-30] VITALS: Ht 147.3 cm; Wt 59.1 kg
--- NOTE | ~2018-12-30 | EKG ---
[place], [place] ELECTROCARDIOGRAM REPORT NAME: ADELINA PISANO UNIT #: [id number] ROOM: 509 DOCTOR: DANI DRAFT REPORT BIRTHDATE: [birth year] [facility] Test Date: 2018-12-30 Test Time: 08:44:32 Pat Name: ADELINA PISANO Department: Room: 509 Gender: F Cross Tie Tram Loader: Tracee Roy : 1930 Requested By: PIERRE MISTRY Order Number: [id number] Reading MD: Javier Eden MD Measurements Intervals [place] Rate: 88 P: 21 CA: 197 QRS: -66 QRSD: 154 T: 54 QT: 457 QTc: 553 Interpretive Statements Sinus rhythm Ventricular bigeminy RBBB and LAFB Left ventricular hypertrophy Compared to ECG 09/24/2018 20:02:21 Early repolarization no longer present Electronically Signed On 12-31-2018 10:13:03 PDT by Javier Eden MD CM:EKGRPT:ELECTROCARDIOGRAM REPORT [id number] PIERRE GEIGER DRAFT REPORT PIERRE MISTRY DO
[~2018-12-30 08:09] MED LIST changes: +Lopressor25 MG PO; +MULTIVIT A B D PO; -ONCE DAILY1 EACH PO; +TOPROL XL25 MG PO
[2018-12-30 08:14] VITALS: BP 155/53
[2018-12-30 08:49] LABS: BILIRUBIN NEGATIVE (NEGATIVE); BLOOD NEGATIVE (NEGATIVE); CLARITY SL CLOUDY (CLEAR); COLOR YELLOW (YELLOW); GLUCOSE NEGATIVE (NEGATIVE); KETONE NEGATIVE (NEGATIVE); LEUKO ESTERASE TRACE (NEGATIVE); NITRITE NEGATIVE (NEGATIVE); UROBILINOGEN 0.2 E.U./dl (0.2-1.0)
[2018-12-30 09:12] LABS: BACTERIA TRACE
[2018-12-30 09:50] LABS: BASO % 0.5 % (0.0-1.0); EOS # 0.2 10*3/uL (0.0-0.4); EOS % 2.5 % (1.0-4.0); HEMATOCRIT 38.1 % (37.0-47.0); HEMOGLOBIN 11.7 g/dl (12.0-16.0); LYMPH # 2.2 10*3/uL (1.3-4.4); LYMPH % 26.7 % (27.0-41.0); MEAN CELL VOLUME 91.6 fl (81.0-99.0); MEAN CORPUSCULAR HGB 28.1 pg (27.0-31.0); MEAN CORPUSCULAR HGB CONC 30.7 g/dl (33.0-37.0); MEAN PLATELET VOLUME 10.6 fl (9.6-12.3); MONO # 0.8 10*3/uL (0.1-1.0); MONO % 9.3 % (3.0-9.0); NEUT % 60.6 % (47.0-73.0); PLATELET COUNT AUTOMATED 261 10*3/uL (130-400); RED BLOOD COUNT 4.16 10*6/uL (4.10-5.10); RED CELL DISTRI WIDTH 16.2 % (0-14.5); WHITE BLOOD COUNT 8.3 10*3/uL (4.8-10.8)
[2018-12-30 09:59] LABS: ACT PARTIAL THROMBO TIME 29.1 SECONDS (20.8-31.5)
[2018-12-30 10:05] LABS: ALBUMIN 3.6 gm/dl (3.1-4.5); ALKALINE PHOSPHATASE 102 U/L (45-117); BUN 17 mg/dl (7-24); CHLORIDE 103 mmol/L (98-107); CREATININE 0.71 mg/dL (0.55-1.02); LIPASE 32 U/L (73-393); POTASSIUM 3.5 mmol/L (3.5-5.1); SGOT/AST 19 IU/L (3-35); SGPT/ALT 23 U/L (12-78); SODIUM 141 mmol/L (136-145); TOTAL PROTEIN 7.8 gm/dL (6.4-8.2); TROPONIN I 0.017 ng/ml (<0.045)
[2018-12-30 11:34] VITALS: BP 149/57
[2018-12-30 12:25] VITALS: BP 159/88
--- NOTE | 2018-12-30 12:25 | NUR ---
A 88, admitted to 5E, under the services of MARCY Patel DO with a diagnosis of NEAR SYNCOPE AND VERTIGO. Chief complaint is DIZZINESS. Patient arrived via stretcher from ER. Monitor applied. Initial assessment completed. Vital signs taken and recorded. MARCY PATEL DO notified of admission to the unit. Orders received. See assessment for past medical history, medications and allergies. Patient and/or family oriented to unit. Clothing/patient valuable form completed. BETZY PINEDA
[2018-12-30 16:00] VITALS: BP 151/66
--- NOTE | 2018-12-30 19:27 | NUR ---
REPORT RECEIVED FROM BETZY MACKENZIE
[2018-12-30 20:00] VITALS: BP 149/78
--- NOTE | 2018-12-30 20:43 | NUR ---
PT C/O NAUSEA. DR HARPER INFORMED. ORDER FOR IV ZOFRAN RECEIVED.
--- NOTE | 2018-12-30 23:00 | NUR ---
REPORT RECEIVED FROM GURDEEP GRIFFIN AT THIS TIME. ASSUMED CARE OF PATIENT. PATIENT SLEEPING AT THIS TIME. BED LOCKED IN LOWEST POSITION, CALL LIGHT WITHIN REACH, BED ALARM ON. WILL MONITOR.
[2018-12-31] VITALS: BP 151/65
--- NOTE | 2018-12-31 00:59 | NUR ---
24 HR chart check completed.
--- NOTE | 2018-12-31 01:08 | NUR ---
PATIENT RESTING WITH EYES CLOSED. NO DISTRES NOTED. CALL LIGHT WITHIN REACH. WILL MONIOR.
--- NOTE | 2018-12-31 04:18 | NUR ---
ASSISTED PATIENT TO RR, PT UNSTEADY ON FEET WITH CANE. PATIENT STATES THAT SHE STILL FEELS DIZZY BUT DOES NOT FEEL LIKE THE ROOM IS SPINNING OR NAUSEATED AT THIS TIME. PATIENT LAYED BACK IN BED AT THIS TIME. CALL LIGHT WITHIN REACH.
--- NOTE | 2018-12-31 05:45 | NUR ---
PATIENT RESTING WITH EYES CLOSED AT THIS TIME. MORNING MEDICATIONS ADMINISTERED PRESCRIBED. PATIENT DOES STILL COMPLAIN ABOUT DIZZINESS. CALL DAVIS WITHIN REACH. WILL CONTINUE TO MONITOR.
[2018-12-31 07:08] LABS: BASO % 0.4 % (0.0-1.0); EOS # 0.3 10*3/uL (0.0-0.4); EOS % 4.2 % (1.0-4.0); HEMATOCRIT 39.3 % (37.0-47.0); LYMPH # 2.1 10*3/uL (1.3-4.4); LYMPH % 27.7 % (27.0-41.0); MEAN CORPUSCULAR HGB 27.8 pg (27.0-31.0); MEAN CORPUSCULAR HGB CONC 30.5 g/dl (33.0-37.0); MEAN PLATELET VOLUME 10.9 fl (9.6-12.3); MONO # 0.9 10*3/uL (0.1-1.0); MONO % 11.4 % (3.0-9.0); NEUT # 4.2 10*3/uL (2.3-7.9); NEUT % 56.2 % (47.0-73.0); PLATELET COUNT AUTOMATED 236 10*3/uL (130-400); RED BLOOD COUNT 4.32 10*6/uL (4.10-5.10); RED CELL DISTRI WIDTH 16.4 % (0-14.5); WHITE BLOOD COUNT 7.6 10*3/uL (4.8-10.8)
[2018-12-31 07:10] LABS: ALBUMIN 3.3 gm/dl (3.1-4.5); ALKALINE PHOSPHATASE 95 U/L (45-117); BUN 12 mg/dl (7-24); CHLORIDE 102 mmol/L (98-107); CREATININE 0.76 mg/dL (0.55-1.02); PHOSPHOROUS 2.6 mg/dL (2.5-4.9); POTASSIUM 3.4 mmol/L (3.5-5.1); SGOT/AST 22 IU/L (3-35); SGPT/ALT 21 U/L (12-78); SODIUM 141 mmol/L (136-145); TOTAL PROTEIN 7.3 gm/dL (6.4-8.2)
[2018-12-31 07:15] VITALS: BP 160/84
[2018-12-31 12:00] VITALS: BP 129/66
--- NOTE | 2018-12-31 12:44 | NUR ---
ultram effective for joint pain relief
--- NOTE | 2018-12-31 13:59 | NUR ---
Jet Pilot in to talk to patient. Patient states lives at HOME with ALONE. There are FEW steps in the home. Physician: BRITTON Pharmacy: [facility] Home health services: NONE Patient's level of ADLs: INDEPENDENT Patient has working utilities: YES DME: OXYGEN PORTABLE TANKS, CANE Follow-up physician's appointment after d/c: WILL BE MADE BY HOSPITALIST NURSE DIRECCTOR ON DISCHARGE Does patient want to access PORTAL?: NO Discharge plan PT STATES SHE LIVES AT HOME ALONE. STATES SHE PLANS ON RETRUNING HOME ON DISCHARGE BUT WOULD LIKE TO HAVE OV. SHE HAS HAD THEM IN THE PAST. PT HAS HOME O2 AND PORTABLE TANK. DAUGHTER HELPS HER WHEN SHE CAN. WILL CONTINUE TO FOLLOW. STATES SHE WILL HAVE A RIDE HOME ON DISCHARGE.. HEIDI SAINI
--- NOTE | 2018-12-31 15:24 | NUR ---
PHYSICAL THERAPY Patient evaluated on 5, full evaluation to follow. Continue with PT as per plan of care with fall, 02, ALARM and acute debility precautions. Will require SNF, WILL MOST LIKELY REFUSE. PAtient is moderate complexity via chart review, tests and evaluation: [id number]. Thank you for this referral. Dania Connell,PT
--- NOTE | 2018-12-31 15:30 | NUR ---
Christy was evaluated by occupational therapy this date. She s/o dizziness during change in position that resloves after sitting. Christy requires increased assist with ADL's and functional transfers secondary to decreased balance and decreased standing endurance. Continued occupational therapy in SNF is recommended until her balance, endurance, and vertigo improve. Ivory Chan OTR/L
[2018-12-31 16:00] VITALS: BP 128/47
--- NOTE | 2018-12-31 16:05 | NUR ---
REFERRAL FAXED TO [facility].
[2018-12-31 20:00] VITALS: BP 111/43
--- NOTE | 2018-12-31 20:00 | NUR ---
IV started right forearm with #22 protective cath after 1 attempts. Site prepped with Chloroprep. Sterile dressing applied. Patient tolerated procedure well. IV infusing at cc/hr. RUBIA AYON
--- NOTE | 2018-12-31 22:00 | NUR ---
RESTING IN BED. TOOK PO MEDICATIONS WITHOUT DIFFICULTY. REFUSING PAIN MEDICATION AT THS TIME. CALL LIGHT WITHIN REACH.
[2019-01-01] VITALS: BP 156/62
--- NOTE | 2019-01-01 | NUR ---
RESTING IN BED WITH EYES CLOSED. BED IN LOW POSITION. CALL LIGHT WITHIN REACH.
--- NOTE | 2019-01-01 04:00 | NUR ---
RESTING IN BED WITH EYES CLOSED. RESPIRATIONS EASY & UNLABORED ON ROOM AIR. CALL LIGHT WITHIN REACH.
--- NOTE | 2019-01-01 05:45 | NUR ---
BLOOD SUGAR 104; NO COVERAGE REQUIRED. PATIENT VOICES NO C/O AT THIS TIME. CALL LIGHT REMAINS WITHIN REACH.
--- NOTE | 2019-01-01 09:21 | NUR ---
24 HR CHART CHECK COMPLETE
--- NOTE | 2019-01-01 09:40 | NUR ---
OT NOTE Pt was seen this A.M. 1:1 for 24 minute OT session. Upon arrival pt was sitting upright in the recliner. Pt identified by name and and had no complaints at this time. Sit to stand completed from chair level with CGA and use of straight cane for UE support. Functional mobility completed to the bathroom with CGA and use of straight cane, pt required constant verbal prompts for slowing down due to being impulsive increasing risk of falls. There she stood sink side while washing her hands and face with CGA. Pt had one LOB to the L side while crossing midline to reach for paper towel, LOB was corrected with Verna. Pt transferred on/off standard commode with CGA and verbal prompts for slowing down during rise to avoid risk of becoming dizzy. Pt donned pants and pulled up over her hips with CGA for safety. Pt returned to the recliner for a seated rest break. Challenged pt's dynamic standing balance while having pt cross midline, reaching over all planes, and weight shifting. Pt was able to maintain F/F+ standing balance throughout. Pt returned to the recliner where she was left with call light in hand, tray table in place, and body alarm activated for safety. Continue with rec D/C plan to SNF. ADELINA Johnson
[2019-01-01] MEDS ORDERED: MECLIZINE HYD12.5 MG PO (10:13)
[2019-01-01] MEDS ORDERED: DOXYCYCLINE MO100 M1 PO (10:13)
--- NOTE | 2019-01-01 11:13 | NUR ---
PT PLANS TO RETURN HOME. [facility] REFERRAL WAS SENT YESTERDAY. WILL CONTINUE TO FOLLOW.
[2019-01-01 11:57] VITALS: BP 142/72
--- NOTE | 2019-01-01 15:45 | NUR ---
Discharge instructions reviewed with patient/family. Patient receptive and verbalizes understanding. Follow-up care arranged. Written instructions given to patient/family. INFORMED PT OF UPCOMING APPOINTMENT WITH PCP. STEFANIE PHILLIPS
--- NOTE | 2019-01-02 15:59 | NUR ---
OCCUPATIONAL THERAPY CO-SIGN I approve of the Occupational Therapy notes written above. VIDHI STAUFFER OTR/Jorge
== END 2019-01-01 15:45 | disposition home health service (06) | DRG 641 ==
LOC: ED 08:09 → 5E 11:21 → EDHOLD 11:21 → 5E 11:50
PROVIDERS: Emergency Medicine; Registered Nurse; ADMIT Internal Medicine
DX: E86.0 Dehydration (principal); E44.0 Moderate protein-calorie malnutrition; J96.11 Chronic respiratory failure with hypoxia; H65.191 Other acute nonsuppurative otitis media, right ear; I95.1 Orthostatic hypotension; I48.0 Paroxysmal atrial fibrillation; I25.10 Atherosclerotic heart disease of native coronary artery without angina pectoris; I11.9 Hypertensive heart disease without heart failure; K44.9 Diaphragmatic hernia without obstruction or gangrene; E11.65 Type 2 diabetes mellitus with hyperglycemia; E78.2 Mixed hyperlipidemia; D64.9 Anemia, unspecified; F41.1 Generalized anxiety disorder; G89.4 Chronic pain syndrome; K57.90 Diverticulosis of intestine, part unspecified, without perforation or abscess without bleeding; M19.90 Unspecified osteoarthritis, unspecified site; Z53.29 Procedure and treatment not carried out because of patient's decision for other reasons; Z96.643 Presence of artificial hip joint, bilateral; Z60.2 Problems related to living alone; Z91.81 History of falling; Z88.0 Allergy status to penicillin; Z88.2 Allergy status to sulfonamides; Z88.1 Allergy status to other antibiotic agents; Z88.6 Allergy status to analgesic agent; Z88.8 Allergy status to other drugs, medicaments and biological substances; Z88.7 Allergy status to serum and vaccine; Z91.041 Radiographic dye allergy status; Z87.11 Personal history of peptic ulcer disease; Z95.5 Presence of coronary angioplasty implant and graft; Z90.710 Acquired absence of both cervix and uterus; Z90.79 Acquired absence of other genital organ(s); Z90.722 Acquired absence of ovaries, bilateral; Z83.3 Family history of diabetes mellitus; Z81.1 Family history of alcohol abuse and dependence; Z79.82 Long term (current) use of aspirin; Z79.899 Other long term (current) drug therapy; Z68.27 Body mass index [BMI] 27.0-27.9, adult

== ENCOUNTER → 2019-02-18 | Outpatient (CLI) | payer MEDICARE ==
[~2019-02-18] MED LIST changes: +DOXYCYCLINE MO100 M1 PO; +MECLIZINE HYD12.5 MG PO
== END | disposition home or self-care (01) ==
LOC: ORTHO 01:16
DX: Z96.642 Presence of left artificial hip joint (principal); M25.551 Pain in right hip

== ENCOUNTER 2019-04-06 09:26 | Inpatient (IN) | payer MEDICARE ==
[~2019-04-06] VITALS: Ht 149.8 cm; Wt 58.1 kg
--- NOTE | ~2019-04-06 | EKG ---
[place], [place] ELECTROCARDIOGRAM REPORT NAME: ADELINA PISANO UNIT #: [id number] ROOM: 424 DOCTOR: DANI DRAFT REPORT BIRTHDATE: [birth year][address] [facility] Test Date: 2019-04-06 Test Time: 09:31:29 Pat Name: ADELINA PISANO Department: Room: 424 Gender: F Emergency Crew Supervisor: : 1930 Requested By: PATRICE CRUZ Order Number: [id number] Reading MD: Nia Hanson Measurements Intervals [place] Rate: 83 P: 56 CT: 253 QRS: -58 QRSD: 155 T: 58 QT: 436 QTc: 513 Interpretive Statements Sinus rhythm Ventricular bigeminy Prolonged CT interval RBBB and LAFB Probable left ventricular hypertrophy Inferior infarct, acute (RCA) Lateral leads are also involved Probable RV involvement, suggest recording right precordial leads Baseline wander in lead(s) II,III,aVF Compared to ECG 12/30/2018 08:44:32 First degree AV block now present Myocardial infarct finding now present Electronically Signed On 04-08-2019 11:43:08 PDT by Nia Hanson CM:EKGRPT:ELECTROCARDIOGRAM REPORT [id number] 1143 PATRICE LOUISE DRAFT REPORT PATRICE CRUZ MD
--- NOTE | ~2019-04-06 | CON ---
[place], [place] REPORT OF CONSULTATION NAME: ADELINA PISANO UNIT #: [id number] ROOM: 424 DOCTOR: ALAN PATEL MD BIRTHDATE: [birth year] DOS: 04/07/2019 HISTORY OF PRESENT ILLNESS: This is a patient of Dr. Polanco. The patient is an 88-year-old female with a history of bypass surgery, 6-vessel, admitted with chest tightness and heaviness started around 11:00 a.m. last night. The patient came in, cardiac enzymes have been normal. The patient saw Dr. Polanco 3 weeks ago and she has been scheduled to have a stress test in 2 weeks from now, because of her symptoms we scheduled a stress test for tomorrow. The patient does not want to have it done. She understands the risks. She wants to have it done with Dr. Polanco. The patient did have some nonspecific ST-T changes, but looks like mostly related to intraventricular conduction delay, left anterior fascicular block, right bundle branch block and left ventricular hypertrophy. She had these symptoms for a year, now she gets worse. PAST MEDICAL HISTORY: Atrial fibrillation, coronary artery disease, cardiomyopathy, chronic pain syndrome, hiatal hernia, moderate protein calorie malnutrition, hyperlipidemia. PAST SURGICAL HISTORY: Appendectomy, bypass surgery, history of ear surgery, abdominal hysterectomy, bilateral hip replacement and laminectomy. ALLERGIES: Multiple. Please refer to the chart, IVP DYE, HYDROCHLOROTHIAZIDE, PREDNISONE, LISINOPRIL and FOSINOPRIL. HOME MEDICATIONS: Aspirin, diltiazem, atorvastatin, Lasix, and potassium. REVIEW OF SYSTEMS: CONSTITUTIONAL: No fever, no chills. HEENT: No visual disturbances or hearing problems. CARDIOVASCULAR: As per HPI. GASTROINTESTINAL: No nausea, no vomiting. GENITOURINARY: No dysuria. PHYSICAL EXAMINATION: VITAL SIGNS: Blood pressure today is 140/60. She is in sinus rhythm. HEENT: Unremarkable. NECK: Supple, no JVD. LUNGS: Diminished breath sounds. HEART: Sounds are regular. ABDOMEN: Soft, nontender. EXTREMITIES: About 1+ edema. NEUROLOGIC: Stable. LABORATORY DATA: Sodium 143, potassium 3.3 and today her hemoglobin is 10.9 and 36.5. Potassium is improved to 3.5, creatinine is 0.5. EKG as mentioned, normal sinus rhythm, first-degree AV block, right bundle branch block, left anterior fascicular block and left ventricular hypertrophy. IMPRESSION: The patient with a history of bypass surgery, admitted with chest heaviness and tightness. Troponins are negative. Chest x-ray showed no acute [place], [place] REPORT OF CONSULTATION NAME: ADELINA PISANO UNIT #: [id number] ROOM: 424 DOCTOR: ALAN PATEL MD BIRTHDATE: [birth year] congestive heart failure, history of hypertension, hyperlipidemia, and atrial fibrillation. RECOMMENDATIONS: The patient should get a stress test. Apparently, she does not want to have it done here. She understands the risks. She wants to have it done with Dr. Abad Polanco. Continue the present medications and we will follow up. ALAN PATEL MD CM:CONSTR:REPORT OF CONSULTATION [id number] 04/07/19 2323 interface
--- NOTE | ~2019-04-06 | EKG ---
[place], [place] ELECTROCARDIOGRAM REPORT NAME: ADELINA PISANO UNIT #: [id number] ROOM: 424 DOCTOR: DANI DRAFT REPORT BIRTHDATE: [birth year] [facility] Test Date: 2019-04-06 Test Time: 16:43:07 Pat Name: ADELINA PISANO Department: Room: 424 Gender: F Manager Respiratory Care: Tracee Roy : 1930 Requested By: PATRICE CRUZ Order Number: [id number] Reading MD: Nia Hanson Measurements Intervals [place] Rate: 70 P: -15 NE: 357 QRS: -64 QRSD: 150 T: 51 QT: 476 QTc: 514 Interpretive Statements Sinus rhythm Prolonged NE interval RBBB and LAFB Left ventricular hypertrophy Compared to ECG 12/30/2018 08:44:32 First degree AV block now present Ventricular premature complex(es) no longer present Electronically Signed On 04-08-2019 11:48:32 PDT by Nia Hanson CM:EKGRPT:ELECTROCARDIOGRAM REPORT [id number] PATRICE LOUISE DRAFT REPORT PATRICE CRUZ MD
--- NOTE | ~2019-04-06 | EKG ---
[place], [place] ELECTROCARDIOGRAM REPORT NAME: ADELINA PISANO UNIT #: [id number] ROOM: 424 DOCTOR: DANI DRAFT REPORT BIRTHDATE: [birth year] [facility] Test Date: 2019-04-06 Test Time: 12:44:42 Pat Name: ADELINA PISANO Department: Room: 424 Gender: F Repairer Controller Tester: Janiya Ferrer : 1930 Requested By: PATRICE CRUZ Order Number: [id number] Reading MD: Nia Hanson Measurements Intervals [place] Rate: 72 P: -19 AL: 208 QRS: -60 QRSD: 155 T: 23 QT: 475 QTc: 520 Interpretive Statements Sinus rhythm Probable left atrial enlargement RBBB and LAFB Left ventricular hypertrophy Compared to ECG 12/30/2018 08:44:32 Ventricular premature complex(es) no longer present Electronically Signed On 04-08-2019 11:43:38 PDT by Nia Hanson CM:EKGRPT:ELECTROCARDIOGRAM REPORT [id number] PATRICE LOUISE DRAFT REPORT PATRICE CRUZ MD
[2019-04-06 09:30] VITALS: BP 128/74
[2019-04-06 09:58] LABS: BASO % 0.5 % (0.0-1.0); EOS # 0.2 10*3/uL (0.0-0.4); EOS % 2.4 % (1.0-4.0); HEMATOCRIT 35.1 % (37.0-47.0); HEMOGLOBIN 10.6 g/dl (12.0-16.0); LYMPH # 2.6 10*3/uL (1.3-4.4); LYMPH % 31.5 % (27.0-41.0); MEAN CELL VOLUME 90.5 fl (81.0-99.0); MEAN CORPUSCULAR HGB 27.3 pg (27.0-31.0); MEAN CORPUSCULAR HGB CONC 30.2 g/dl (33.0-37.0); MEAN PLATELET VOLUME 11.4 fl (9.6-12.3); MONO # 0.7 10*3/uL (0.1-1.0); MONO % 8.3 % (3.0-9.0); NEUT # 4.7 10*3/uL (2.3-7.9); NEUT % 57.2 % (47.0-73.0); PLATELET COUNT AUTOMATED 219 10*3/uL (130-400); RED BLOOD COUNT 3.88 10*6/uL (4.10-5.10); RED CELL DISTRI WIDTH 15.6 % (0-14.5); WHITE BLOOD COUNT 8.2 10*3/uL (4.8-10.8)
[2019-04-06 10:09] LABS: ACT PARTIAL THROMBO TIME 29.8 SECONDS (20.0-32.1)
[2019-04-06 10:17] LABS: ALBUMIN 3.6 gm/dl (3.1-4.5); ALKALINE PHOSPHATASE 97 U/L (45-117); BUN 10 mg/dl (7-24); CHLORIDE 106 mmol/L (98-107); CREATININE 0.69 mg/dL (0.55-1.02); POTASSIUM 3.3 mmol/L (3.5-5.1); SGOT/AST 13 IU/L (3-35); SGPT/ALT 14 U/L (12-78); SODIUM 143 mmol/L (136-145); TOTAL PROTEIN 7.3 gm/dL (6.4-8.2)
[2019-04-06 10:21] LABS: TROPONIN I < 0.015 ng/ml (<0.045)
[2019-04-06 10:30] VITALS: BP 158/65
[2019-04-06 11:00] VITALS: BP 143/55
[2019-04-06 11:18] LABS: BILIRUBIN NEGATIVE (NEGATIVE); BLOOD NEGATIVE (NEGATIVE); CLARITY CLEAR (CLEAR); COLOR YELLOW (YELLOW); GLUCOSE NEGATIVE (NEGATIVE); KETONE NEGATIVE (NEGATIVE); LEUKO ESTERASE TRACE (NEGATIVE); NITRITE NEGATIVE (NEGATIVE); UROBILINOGEN 0.2 E.U./dl (0.2-1.0)
[2019-04-06 11:32] LABS: WBC 16-20 wbc/hpf (0-5)
--- NOTE | 2019-04-06 13:17 | NUR ---
DR. Eden notified of consult.
--- NOTE | 2019-04-06 13:48 | NUR ---
ANSWERING SERVICE WAS NOTIFIED OF DR. Steve CONSULT. RESPONSE OF NOTIFICATION WAS states that Dr. Cesar was covering for Evi today and they connected me to his home. I spoke with Dr. Cesar reviewed pt hx, ekg, and labs. He requested a lexiscan/cardiolyte stress test to be ordered for monday. BONG ALMAGUER
[2019-04-06 16:00] VITALS: BP 140/70
--- NOTE | 2019-04-06 19:20 | NUR ---
ARRIVED ON SHIFT, INTRODUCED TO PATIENT, BEDSIDE REPORT RECEIVED, WHITE BOARD UPDATED, PATIENT REPORTS HAVING GI DISTRESS, AND THAT SHE HASNT TAKEN HER PROTONIX IN TWO WEEKS, CALLED DOWN AND SPOKE TO HOSPITALIST ELECTRICAL LINE MECHANIC THAT MEDICATIONS HAD BEEN RECONCILED, AND REQUESTED MEDICATION FOR PATIENTS C/O HEART BURN.
[2019-04-06 20:00] VITALS: BP 155/68
--- NOTE | 2019-04-06 21:03 | NUR ---
24 HR chart check completed.
[2019-04-07] VITALS: BP 126/77; BP 144/58
--- NOTE | 2019-04-07 04:57 | NUR ---
Patient sleeping. Respirations relaxed and easy. Siderails up 2. [place] on. [employer] [place]
[2019-04-07 06:35] LABS: BASO % 0.4 % (0.0-1.0); EOS # 0.4 10*3/uL (0.0-0.4); EOS % 5.1 % (1.0-4.0); HEMATOCRIT 36.5 % (37.0-47.0); HEMOGLOBIN 10.9 g/dl (12.0-16.0); LYMPH # 2.4 10*3/uL (1.3-4.4); LYMPH % 29.4 % (27.0-41.0); MEAN CELL VOLUME 91.3 fl (81.0-99.0); MEAN CORPUSCULAR HGB 27.3 pg (27.0-31.0); MEAN CORPUSCULAR HGB CONC 29.9 g/dl (33.0-37.0); MEAN PLATELET VOLUME 11.1 fl (9.6-12.3); MONO # 0.8 10*3/uL (0.1-1.0); MONO % 9.5 % (3.0-9.0); NEUT # 4.6 10*3/uL (2.3-7.9); NEUT % 55.5 % (47.0-73.0); PLATELET COUNT AUTOMATED 229 10*3/uL (130-400); RED CELL DISTRI WIDTH 15.5 % (0-14.5); WHITE BLOOD COUNT 8.3 10*3/uL (4.8-10.8)
[2019-04-07 07:07] LABS: ALBUMIN 3.4 gm/dl (3.1-4.5); BUN 7 mg/dl (7-24); CHLORIDE 105 mmol/L (98-107); CREATININE 0.57 mg/dL (0.55-1.02); PHOSPHOROUS 2.5 mg/dL (2.5-4.9); POTASSIUM 3.5 mmol/L (3.5-5.1); SGOT/AST 16 IU/L (3-35); SGPT/ALT 15 U/L (12-78); SODIUM 142 mmol/L (136-145); TOTAL PROTEIN 7.1 gm/dL (6.4-8.2)
[2019-04-07 07:17] LABS: ALKALINE PHOSPHATASE 93 U/L (45-117)
[2019-04-07 12:00] VITALS: BP 150/78
--- NOTE | 2019-04-07 16:25 | NUR ---
Discharge instructions reviewed with patient/family. Patient receptive and verbalizes understanding. Follow-up care arranged. Written instructions given to patient/family. PT WILL FOLLOW SCHEDULED FOR STRESS KYA HOWARD
== END 2019-04-07 16:25 | disposition home or self-care (01) | DRG 880 ==
LOC: ED 09:26 → EDHOLD 10:44 → 4E 11:36
PROVIDERS: Emergency Medicine; Nurse Practitioner Family; Student in an Organized Health Care Education/Training Program; ADMIT Family Medicine
DX: F41.1 Generalized anxiety disorder (principal); J96.10 Chronic respiratory failure, unspecified whether with hypoxia or hypercapnia; E44.0 Moderate protein-calorie malnutrition; I42.9 Cardiomyopathy, unspecified; E78.5 Hyperlipidemia, unspecified; I48.91 Unspecified atrial fibrillation; Z96.643 Presence of artificial hip joint, bilateral; I25.10 Atherosclerotic heart disease of native coronary artery without angina pectoris; G89.4 Chronic pain syndrome; M19.90 Unspecified osteoarthritis, unspecified site; K57.90 Diverticulosis of intestine, part unspecified, without perforation or abscess without bleeding; E87.6 Hypokalemia; E11.65 Type 2 diabetes mellitus with hyperglycemia; E11.69 Type 2 diabetes mellitus with other specified complication; D64.9 Anemia, unspecified; I95.1 Orthostatic hypotension; R94.31 Abnormal electrocardiogram [ECG] [EKG]; I45.10 Unspecified right bundle-branch block; I49.3 Ventricular premature depolarization; I11.9 Hypertensive heart disease without heart failure; I44.60 Unspecified fascicular block; I44.0 Atrioventricular block, first degree; Z99.81 Dependence on supplemental oxygen; Z95.1 Presence of aortocoronary bypass graft; Z79.82 Long term (current) use of aspirin; Z88.0 Allergy status to penicillin; Z88.2 Allergy status to sulfonamides; Z88.8 Allergy status to other drugs, medicaments and biological substances; Z91.041 Radiographic dye allergy status; Z79.899 Other long term (current) drug therapy; Z90.49 Acquired absence of other specified parts of digestive tract; Z90.710 Acquired absence of both cervix and uterus; Z90.89 Acquired absence of other organs; Z90.722 Acquired absence of ovaries, bilateral; Z83.3 Family history of diabetes mellitus; Z83.6 Family history of other diseases of the respiratory system; Z81.1 Family history of alcohol abuse and dependence; Z87.11 Personal history of peptic ulcer disease; Z86.73 Personal history of transient ischemic attack (TIA), and cerebral infarction without residual deficits; Z68.25 Body mass index [BMI] 25.0-25.9, adult